=== PATIENT | male | born 1960 | race African-American/Black ===

== ENCOUNTER 2019-03-15 12:05 | Inpatient (IN) ==
[2019-03-15 13:29] LABS: Basophils % 0.3 % (0.0-0.8); Hematocrit 35.5 VOL% (42.0-52.0); Immature Granulocytes % 0.5 %; Immature Granulocytes Absolute 0.08 #; Lymphocytes # 0.4 10*3/uL (1.4-4.0); Lymphocytes % 2.5 % (21.2-54.2); Mean Corpuscular Volume 89.9 FL (87-102); Mean Platelet Volume 12.1 FL (9.6-12.0); Monocytes % 3.2 % (1.7-12.7); Neutrophils % 93.5 % (38.7-73.9); Platelet Count 168 T/CUMM (130-400); Red Blood Count 3.95 MC/CUMM (3.8-5.5); White Blood Count 14.9 T/CUMM (4-12)
[2019-03-15 13:48] LABS: Albumin 2.9 G/DL (3.4-5.0); Bilirubin,Total 1.8 MG/DL (0.2-1.0); INR 1.3; Osmolality,Calculated 290.2 MOS/KG (273-304); PT Patient Result 13.6 SECS (9.6-12.2); Partial Thromboplastin Time 33.8 SECS (20.8-36.0); Total Protein 7.4 G/DL (6.4-8.3)
[2019-03-15] MEDS ORDERED: VANCOMYCIN INJ 1,000 MG in SODIUM CHLORIDE 0.9% 250 ML IV STA (14:44)
[2019-03-15] MEDS ORDERED: SODIUM CHLORIDE 0.9% 1,000 ML IV STA (14:54)
[2019-03-15 14:59] LABS: Band Neutrophils 4 % (0-10); Lymphocytes 5 % (20-55); Metamyelocytes 3 %; Myelocytes 1 %; Platelet Estimate Normal; Segmented Neutrophils 87 % (50-85); Total Cells Counted 100
[2019-03-15 15:00] LABS: Anisocytosis Slight; Burr Cells 1+; Hypochromasia 2+; Poikilocytosis 1+
[2019-03-15 15:01] LABS: Polychromasia 1+; Schistocytes Few
[2019-03-15] MEDS ORDERED: ONDANSETRON 4 MG/2 ML VIAL IV PRN (15:37)
[2019-03-15] MEDS ORDERED: MORPHINE 4 MG/1 ML VIAL IV PRN (15:37)
[2019-03-15] MEDS ORDERED: tiZANidine 4 MG TABLET PO PRN (15:44)
[2019-03-15] MEDS ORDERED: traZODone 50 MG TABLET PO PRN (15:44)
[2019-03-15] MEDS ORDERED: IBUPROFEN 200 MG TABLET PO PRN (15:44)
[2019-03-15] MEDS ORDERED: VANCOMYCIN INJ 1,500 MG in SODIUM CHLORIDE 0.9% 500 ML IV PRN (17:30)
[2019-03-15] MEDS ORDERED: VANCOMYCIN INJ 1,000 MG in SODIUM CHLORIDE 0.9% 250 ML IV ONE (18:00)
[2019-03-15] MEDS: CIPROFLOXACIN 500 MG TABLET PO SCH (18:10)
[2019-03-15] MEDS: SODIUM CHLORIDE 0.9% 1,000 ML IV SCH (18:11)
[2019-03-15] MEDS ORDERED: DOXAZOSIN 4 MG TABLET PO SCH (21:00)
[2019-03-15] MEDS ORDERED: ENOXAPARIN 30 MG/0.3 ML SYRINGE SUBCUT SCH (21:00)
[2019-03-15] MEDS: predniSONE 20 MG TABLET PO SCH (21:18)
[2019-03-15] MEDS: HEPARIN 5,000 UNIT/1 ML VIAL SUBCUT SCH (21:18)
[2019-03-16] MEDS: HEPARIN 5,000 UNIT/1 ML VIAL SUBCUT SCH ×3 (05:48→21:53)
[2019-03-16 06:27] LABS: Basophils % 0.3 % (0.0-0.8); Eosinophils % 0.2 % (0.00-10.9); Hematocrit 32.4 VOL% (42.0-52.0); Hemoglobin 10.8 GM/DL (14.0-18.0); Immature Granulocytes % 1.6 %; Immature Granulocytes Absolute 0.22 #; Lymphocytes # 0.5 10*3/uL (1.4-4.0); Lymphocytes % 3.5 % (21.2-54.2); Mean Corpuscular HGB Conc 33.3 GM/DL (32-36); Mean Corpuscular Volume 85.7 FL (87-102); Mean Platelet Volume 13.3 FL (9.6-12.0); Monocytes % 2.6 % (1.7-12.7); Neutrophils % 91.8 % (38.7-73.9); Platelet Count 133 T/CUMM (130-400); Red Blood Count 3.78 MC/CUMM (3.8-5.5)
[2019-03-16 06:36] LABS: Band Neutrophils 5 % (0-10); Lymphocytes 6 % (20-55); Segmented Neutrophils 84 % (50-85); Total Cells Counted 100
[2019-03-16 06:37] LABS: Hypochromasia Slight; Platelet Estimate Normal
[2019-03-16 06:38] LABS: Calcium 7.9 MG/DL (8.5-10.1); Osmolality,Calculated 301.7 MOS/KG (273-304)
[2019-03-16] MEDS: SODIUM CHLORIDE 0.9% 1,000 ML IV SCH ×4 (06:51→18:16)
[2019-03-16] MEDS ORDERED: PANTOPRAZOLE 40 MG TABLET PO SCH (09:00)
[2019-03-16] MEDS ORDERED: FUROSEMIDE 20 MG TABLET PO SCH (09:00)
[2019-03-16] MEDS ORDERED: POTASSIUM CHLORIDE 20 MEQ TABLET PO SCH (09:00)
[2019-03-16] MEDS: CIPROFLOXACIN 500 MG TABLET PO SCH (11:15)
[2019-03-16] MEDS: amLODIPine 10 MG TABLET PO SCH ×2 (11:15→12:02)
[2019-03-16] MEDS: predniSONE 20 MG TABLET PO SCH ×2 (11:15→21:53)
[2019-03-16] MEDS ORDERED: MORPHINE 4 MG/1 ML VIAL IV SCH (11:30)
[2019-03-16] MEDS ORDERED: PANTOPRAZOLE 40 MG VIAL IV SCH ×2 (11:30→21:00)
[2019-03-17] MEDS: SODIUM CHLORIDE 0.9% 1,000 ML IV SCH ×4 (01:56→17:22)
[2019-03-17 04:18] LABS: Basophils # 0.1 10*3/uL (0.0-0.2); Basophils % 0.3 % (0.0-0.8); Hematocrit 31.5 VOL% (42.0-52.0); Hemoglobin 10.4 GM/DL (14.0-18.0); Immature Granulocytes % 8.1 %; Immature Granulocytes Absolute 1.42 #; Lymphocytes # 0.7 10*3/uL (1.4-4.0); Lymphocytes % 3.7 % (21.2-54.2); Mean Corpuscular Volume 84.2 FL (87-102); Mean Platelet Volume 12.9 FL (9.6-12.0); Monocytes % 3.9 % (1.7-12.7); NRBC # 0.02 10*3/uL; Platelet Count 156 T/CUMM (130-400); Red Blood Count 3.74 MC/CUMM (3.8-5.5); Red Cell Distribution Width 13.8 % (9.3-17.3); White Blood Count 17.5 T/CUMM (4-12)
[2019-03-17 04:45] LABS: Band Neutrophils 1 % (0-10); Lymphocytes 5 % (20-55); Platelet Estimate Adequate; Segmented Neutrophils 90 % (50-85); Total Cells Counted 100
[2019-03-17 04:46] LABS: Hypochromasia 1+; Ovalocytes Slight
[2019-03-17 04:49] LABS: Calcium 7.3 MG/DL (8.5-10.1)
[2019-03-17] MEDS: HEPARIN 5,000 UNIT/1 ML VIAL SUBCUT SCH ×3 (06:04→21:01)
[2019-03-17] MEDS ORDERED: VANCOMYCIN INJ 1,500 MG in SODIUM CHLORIDE 0.9% 500 ML IV ONE (09:00)
[2019-03-17] MEDS: predniSONE 20 MG TABLET PO SCH ×2 (10:01→20:54)
[2019-03-17] MEDS: CIPROFLOXACIN 500 MG TABLET PO SCH (10:01)
[2019-03-17] MEDS: PANTOPRAZOLE 40 MG TABLET PO SCH (10:01)
[2019-03-17] MEDS: CLINDAMYCIN INJ 600 MG in PREMIX 1 EACH IV SCH ×2 (12:39→20:54)
[2019-03-17] MEDS ORDERED: ceFAZolin 1,000 MG in SYRINGE 1 EACH IV ONE (15:52)
[2019-03-18] MEDS: SODIUM CHLORIDE 0.9% 1,000 ML IV SCH ×3 (01:26→16:59)
[2019-03-18] MEDS: HEPARIN 5,000 UNIT/1 ML VIAL SUBCUT SCH ×3 (06:00→21:54)
[2019-03-18] MEDS: CLINDAMYCIN INJ 600 MG in PREMIX 1 EACH IV SCH ×2 (06:03→16:59)
[2019-03-18 06:48] LABS: Basophils # 0.1 10*3/uL (0.0-0.2); Basophils % 0.4 % (0.0-0.8); Hematocrit 29.3 VOL% (42.0-52.0); Hemoglobin 10.4 GM/DL (14.0-18.0); Immature Granulocytes % 7.9 %; Immature Granulocytes Absolute 2.02 #; Lymphocytes # 0.8 10*3/uL (1.4-4.0); Lymphocytes % 2.9 % (21.2-54.2); Mean Corpuscular HGB Conc 35.5 GM/DL (32-36); Mean Corpuscular Volume 78.6 FL (87-102); Mean Platelet Volume 13.5 FL (9.6-12.0); Monocytes % 4.4 % (1.7-12.7); NRBC # 0.02 10*3/uL; Neutrophils % 84.4 % (38.7-73.9); Platelet Count 192 T/CUMM (130-400); Red Blood Count 3.73 MC/CUMM (3.8-5.5); Red Cell Distribution Width 13.3 % (9.3-17.3); White Blood Count 25.7 T/CUMM (4-12)
[2019-03-18 07:14] LABS: Calcium 7.6 MG/DL (8.5-10.1); Osmolality,Calculated 325.3 MOS/KG (273-304)
[2019-03-18 07:29] LABS: Band Neutrophils 3 % (0-10); Lymphocytes 3 % (20-55); Metamyelocytes 4 %; Myelocytes 1 %; Segmented Neutrophils 84 % (50-85); Total Cells Counted 100
[2019-03-18 07:30] LABS: Burr Cells Few; Hypochromasia 1+; Microcytosis 1+; Ovalocytes Few; Target Cells 1+
[2019-03-18 07:31] LABS: Platelet Estimate Normal
[2019-03-18 08:16] LABS: Hepatitis B Core IgM Quant < 0.05 Index; Hepatitis B Surface Ag Quant 0.11 Index; Hepatitis B Surface Ag Result Negative (Negative); Hepatitis C Virus Ab Quant 0.19 Index; Hepatitis C Virus Ab Result Negative (Negative)
[2019-03-18] MEDS ORDERED: CIPROFLOXACIN 100 MG/ML 100 ML/BOTTLE PO SCH (09:00)
[2019-03-18] MEDS ORDERED: HEPARIN 5,000 UNIT/1 ML VIAL ONE (11:03)
[2019-03-18] MEDS ORDERED: LIDOCAINE 1%/EPI INJ 20 ML VIAL ONE (11:04)
[2019-03-18] MEDS ORDERED: BUPIVACAINE MPF 0.25% 30 ML VIAL ONE (11:04)
[2019-03-18] MEDS ORDERED: PROPOFOL 200 MG/20 ML VIAL IV ONE (12:01)
[2019-03-18] MEDS ORDERED: LIDOCAINE 2% 5 ML VIAL ONE (12:01)
[2019-03-18] MEDS ORDERED: MIDAZOLAM 2 MG/2 ML VIAL ONE (12:01)
[2019-03-18] MEDS ORDERED: fentaNYL 100 MCG/2 ML VIAL ONE (12:02)
[2019-03-18] MEDS ORDERED: HEPARIN 10,000 UNIT/10 ML VIAL IV SCH (16:30)
[2019-03-18] MEDS: PANTOPRAZOLE 40 MG TABLET PO SCH (16:58)
[2019-03-18] MEDS: PIPERACILLIN/TAZOBACTAM 3,375 MG in SODIUM CHLORIDE 0.9% 100 ML IV SCH (18:16)
[2019-03-18] MEDS: ALLOPURINOL 100 MG TABLET PO SCH (20:12)
[2019-03-19] MEDS ORDERED: ALBUTEROL/IPRATROPIUM 3 ML NEB RESP TX ONE (00:15)
[2019-03-19] MEDS ORDERED: ALBUTEROL/IPRATROPIUM 3 ML NEB RESP TX PRN (00:16)
[2019-03-19] MEDS: CLINDAMYCIN INJ 600 MG in PREMIX 1 EACH IV SCH ×2 (02:22→10:09)
[2019-03-19] MEDS: HEPARIN 5,000 UNIT/1 ML VIAL SUBCUT SCH ×3 (06:11→21:18)
[2019-03-19] MEDS: PIPERACILLIN/TAZOBACTAM 3,375 MG in SODIUM CHLORIDE 0.9% 100 ML IV SCH ×2 (06:11→17:12)
[2019-03-19] MEDS: SODIUM CHLORIDE 0.9% 1,000 ML IV SCH (07:28)
[2019-03-19] MEDS: PANTOPRAZOLE 40 MG TABLET PO SCH (08:06)
[2019-03-19 12:58] LABS: Basophils # 0.2 10*3/uL (0.0-0.2); Basophils % 0.5 % (0.0-0.8); Eosinophils % 0.1 % (0.00-10.9); Hematocrit 30.4 VOL% (42.0-52.0); Hemoglobin 11.1 GM/DL (14.0-18.0); Immature Granulocytes % 8.9 %; Immature Granulocytes Absolute 3.08 #; Lymphocytes # 1.2 10*3/uL (1.4-4.0); Lymphocytes % 3.3 % (21.2-54.2); Mean Corpuscular HGB Conc 36.5 GM/DL (32-36); Mean Corpuscular Volume 76.8 FL (87-102); Mean Platelet Volume 13.1 FL (9.6-12.0); Monocytes % 3.5 % (1.7-12.7); NRBC # 0.04 10*3/uL; Neutrophils % 83.7 % (38.7-73.9); Platelet Count 172 T/CUMM (130-400); Red Blood Count 3.96 MC/CUMM (3.8-5.5); Red Cell Distribution Width 13.2 % (9.3-17.3); White Blood Count 34.5 T/CUMM (4-12)
[2019-03-19] MEDS ORDERED: VANCOMYCIN INJ 1,000 MG in SODIUM CHLORIDE 0.9% 250 ML IV PRN (13:00)
[2019-03-19 13:25] LABS: Calcium 8.4 MG/DL (8.5-10.1); Osmolality,Calculated 294.5 MOS/KG (273-304)
[2019-03-19 13:53] LABS: Anisocytosis 1+; Hypochromasia 1+; Lymphocytes 3 % (20-55); Microcytosis Slight; Poikilocytosis 1+; Segmented Neutrophils 93 % (50-85); Total Cells Counted 100
[2019-03-19 13:54] LABS: Burr Cells Few; Platelet Estimate Normal; Schistocytes Few
[2019-03-19] MEDS ORDERED: VANCOMYCIN INJ 2,000 MG in SODIUM CHLORIDE 0.9% 500 ML IV ONE (17:00)
[2019-03-19] MEDS: ALLOPURINOL 100 MG TABLET PO SCH (20:08)
[2019-03-20 04:50] LABS: Basophils # 0.1 10*3/uL (0.0-0.2); Basophils % 0.4 % (0.0-0.8); Eosinophils # 0.1 10*3/uL (0.0-0.87); Eosinophils % 0.2 % (0.00-10.9); Hematocrit 27.4 VOL% (42.0-52.0); Hemoglobin 9.9 GM/DL (14.0-18.0); Immature Granulocytes % 9.3 %; Immature Granulocytes Absolute 2.86 #; Lymphocytes # 1.6 10*3/uL (1.4-4.0); Lymphocytes % 5.2 % (21.2-54.2); Mean Corpuscular HGB Conc 36.1 GM/DL (32-36); Mean Corpuscular Volume 77.2 FL (87-102); Mean Platelet Volume 12.8 FL (9.6-12.0); Monocytes % 3.5 % (1.7-12.7); NRBC # 0.03 10*3/uL; Neutrophils % 81.4 % (38.7-73.9); Platelet Count 169 T/CUMM (130-400); Red Blood Count 3.55 MC/CUMM (3.8-5.5); White Blood Count 30.6 T/CUMM (4-12)
[2019-03-20 05:06] LABS: Calcium 8.4 MG/DL (8.5-10.1); Osmolality,Calculated 299.7 MOS/KG (273-304)
[2019-03-20] MEDS: PIPERACILLIN/TAZOBACTAM 3,375 MG in SODIUM CHLORIDE 0.9% 100 ML IV SCH ×2 (05:54→17:33)
[2019-03-20 05:55] LABS: Band Neutrophils 1 % (0-10); Hypochromasia 1+; Lymphocytes 4 % (20-55); Ovalocytes Slight; Platelet Estimate Adequate; Segmented Neutrophils 88 % (50-85); Total Cells Counted 100
[2019-03-20] MEDS: HEPARIN 5,000 UNIT/1 ML VIAL SUBCUT SCH ×3 (05:55→21:01)
[2019-03-20 05:56] LABS: Target Cells Few
[2019-03-20] MEDS: PANTOPRAZOLE 40 MG TABLET PO SCH (08:20)
[2019-03-20] MEDS: ALLOPURINOL 100 MG TABLET PO SCH (21:00)
[2019-03-21] MEDS: HEPARIN 5,000 UNIT/1 ML VIAL SUBCUT SCH ×3 (06:10→21:40)
[2019-03-21] MEDS: PIPERACILLIN/TAZOBACTAM 3,375 MG in SODIUM CHLORIDE 0.9% 100 ML IV SCH ×2 (06:10→18:08)
[2019-03-21 06:50] LABS: Basophils # 0.1 10*3/uL (0.0-0.2); Basophils % 0.3 % (0.0-0.8); Eosinophils # 0.2 10*3/uL (0.0-0.87); Eosinophils % 0.5 % (0.00-10.9); Hematocrit 25.2 VOL% (42.0-52.0); Hemoglobin 8.9 GM/DL (14.0-18.0); Immature Granulocytes % 8.5 %; Immature Granulocytes Absolute 2.51 #; Lymphocytes # 1.3 10*3/uL (1.4-4.0); Lymphocytes % 4.3 % (21.2-54.2); Mean Corpuscular HGB Conc 35.3 GM/DL (32-36); Mean Corpuscular Volume 78.5 FL (87-102); Mean Platelet Volume 12.9 FL (9.6-12.0); Monocytes % 3.9 % (1.7-12.7); NRBC # 0.02 10*3/uL; Neutrophils % 82.5 % (38.7-73.9); Platelet Count 151 T/CUMM (130-400); Red Blood Count 3.21 MC/CUMM (3.8-5.5); Red Cell Distribution Width 13.3 % (9.3-17.3); White Blood Count 29.5 T/CUMM (4-12)
[2019-03-21 07:04] LABS: Calcium 8.7 MG/DL (8.5-10.1); Osmolality,Calculated 302.5 MOS/KG (273-304)
[2019-03-21 07:11] LABS: Band Neutrophils 2 % (0-10); Eosinophils 1 % (0-10); Hypochromasia 1+; Lymphocytes 9 % (20-55); Platelet Estimate Adequate; Segmented Neutrophils 86 % (50-85); Target Cells Few; Total Cells Counted 100
[2019-03-21] MEDS: PANTOPRAZOLE 40 MG TABLET PO SCH (08:39)
[2019-03-21] MEDS ORDERED: VANCOMYCIN INJ 750 MG in SODIUM CHLORIDE 0.9% 250 ML IV ONE (17:00)
[2019-03-21] MEDS: ALLOPURINOL 100 MG TABLET PO SCH (21:40)
[2019-03-22] MEDS: ACETAMINOPHEN 325 MG TABLET PO PRN (01:47)
[2019-03-22] MEDS: PIPERACILLIN/TAZOBACTAM 3,375 MG in SODIUM CHLORIDE 0.9% 100 ML IV SCH ×2 (05:39→18:22)
[2019-03-22] MEDS: HEPARIN 5,000 UNIT/1 ML VIAL SUBCUT SCH ×3 (05:46→21:28)
[2019-03-22] MEDS: PANTOPRAZOLE 40 MG TABLET PO SCH (08:13)
[2019-03-22 08:27] LABS: Basophils # 0.1 10*3/uL (0.0-0.2); Basophils % 0.2 % (0.0-0.8); Eosinophils # 0.2 10*3/uL (0.0-0.87); Eosinophils % 0.9 % (0.00-10.9); Hematocrit 23.3 VOL% (42.0-52.0); Hemoglobin 8.1 GM/DL (14.0-18.0); Immature Granulocytes % 7.6 %; Immature Granulocytes Absolute 1.84 #; Lymphocytes # 1.2 10*3/uL (1.4-4.0); Lymphocytes % 5.1 % (21.2-54.2); Mean Corpuscular HGB Conc 34.8 GM/DL (32-36); Mean Corpuscular Volume 79.8 FL (87-102); Mean Platelet Volume 13.1 FL (9.6-12.0); Monocytes % 4.8 % (1.7-12.7); Neutrophils % 81.4 % (38.7-73.9); Platelet Count 122 T/CUMM (130-400); Red Blood Count 2.92 MC/CUMM (3.8-5.5); White Blood Count 24.1 T/CUMM (4-12)
[2019-03-22 08:41] LABS: Calcium 8.7 MG/DL (8.5-10.1); Osmolality,Calculated 291.5 MOS/KG (273-304)
[2019-03-22 09:05] LABS: Band Neutrophils 2 % (0-10); Hypochromasia 1+; Lymphocytes 4 % (20-55); Platelet Estimate Adequate; Segmented Neutrophils 86 % (50-85); Target Cells Few; Total Cells Counted 100
[2019-03-22] MEDS: SILVER SULFADIAZINE 1% CREAM 25 GM TUBE TOP SCH (15:53)
[2019-03-22] MEDS: ALLOPURINOL 100 MG TABLET PO SCH (21:28)
[2019-03-23] MEDS ORDERED: MORPHINE 4 MG/1 ML VIAL IV ONE (04:51)
[2019-03-23] MEDS: PIPERACILLIN/TAZOBACTAM 3,375 MG in SODIUM CHLORIDE 0.9% 100 ML IV SCH ×2 (05:23→19:35)
[2019-03-23] MEDS: HEPARIN 5,000 UNIT/1 ML VIAL SUBCUT SCH ×3 (05:24→21:52)
[2019-03-23 08:54] LABS: Basophils % 0.1 % (0.0-0.8); Eosinophils # 0.2 10*3/uL (0.0-0.87); Eosinophils % 1.1 % (0.00-10.9); Hematocrit 22.4 VOL% (42.0-52.0); Hemoglobin 7.8 GM/DL (14.0-18.0); Immature Granulocytes % 5.6 %; Immature Granulocytes Absolute 0.94 #; Lymphocytes # 0.9 10*3/uL (1.4-4.0); Lymphocytes % 5.4 % (21.2-54.2); Mean Corpuscular HGB Conc 34.8 GM/DL (32-36); Mean Corpuscular Volume 81.2 FL (87-102); Mean Platelet Volume 13.1 FL (9.6-12.0); Monocytes % 6.3 % (1.7-12.7); Neutrophils % 81.5 % (38.7-73.9); Platelet Count 118 T/CUMM (130-400); Red Blood Count 2.76 MC/CUMM (3.8-5.5); Red Cell Distribution Width 14.2 % (9.3-17.3); White Blood Count 16.9 T/CUMM (4-12)
[2019-03-23 09:16] LABS: Band Neutrophils 1 % (0-10); Eosinophils 4 % (0-10); Lymphocytes 7 % (20-55); Segmented Neutrophils 81 % (50-85); Total Cells Counted 100
[2019-03-23] MEDS: SILVER SULFADIAZINE 1% CREAM 25 GM TUBE TOP SCH (09:16)
[2019-03-23 09:17] LABS: Hypochromasia 2+; Microcytosis Slight; Target Cells 1+
[2019-03-23 09:18] LABS: Platelet Estimate Adequate
[2019-03-23 09:20] LABS: Calcium 8.6 MG/DL (8.5-10.1); Osmolality,Calculated 295.5 MOS/KG (273-304)
[2019-03-23] MEDS ORDERED: VANCOMYCIN INJ 1,000 MG in SODIUM CHLORIDE 0.9% 250 ML IV ONE (17:00)
[2019-03-23] MEDS: PANTOPRAZOLE 40 MG TABLET PO SCH (18:32)
[2019-03-23] MEDS: ALLOPURINOL 100 MG TABLET PO SCH (21:52)
[2019-03-23] MEDS ORDERED: SODIUM PHOSPHATE ENEMA 133 ML BOTTLE RECTAL ONE (22:37)
[2019-03-24] MEDS: POLYETHYLENE GLYCOL POWDER 17 GM PACK PO SCH ×2 (01:55→13:19)
[2019-03-24] MEDS: ACETAMINOPHEN 325 MG TABLET PO PRN (05:18)
[2019-03-24] MEDS: HEPARIN 5,000 UNIT/1 ML VIAL SUBCUT SCH ×3 (05:19→21:57)
[2019-03-24] MEDS: PIPERACILLIN/TAZOBACTAM 3,375 MG in SODIUM CHLORIDE 0.9% 100 ML IV SCH ×2 (05:19→17:53)
[2019-03-24 06:30] LABS: Basophils % 0.2 % (0.0-0.8); Eosinophils # 0.1 10*3/uL (0.0-0.87); Hematocrit 20.4 VOL% (42.0-52.0); Immature Granulocytes % 2.5 %; Immature Granulocytes Absolute 0.34 #; Lymphocytes # 0.9 10*3/uL (1.4-4.0); Lymphocytes % 6.4 % (21.2-54.2); Mean Corpuscular HGB Conc 34.3 GM/DL (32-36); Mean Corpuscular Volume 81.9 FL (87-102); Mean Platelet Volume 13.2 FL (9.6-12.0); Monocytes % 7.9 % (1.7-12.7); Platelet Count 132 T/CUMM (130-400); Red Blood Count 2.49 MC/CUMM (3.8-5.5); Red Cell Distribution Width 14.3 % (9.3-17.3); White Blood Count 13.4 T/CUMM (4-12)
[2019-03-24 06:44] LABS: Calcium 8.7 MG/DL (8.5-10.1)
[2019-03-24] MEDS ORDERED: SODIUM CHLORIDE 0.9% 1,000 ML IV PRN (07:33)
[2019-03-24] MEDS ORDERED: SEVOFLURANE 1 UNIT/15 MINUTE INH ONE (12:05)
[2019-03-24] MEDS ORDERED: MIDAZOLAM 2 MG/2 ML VIAL ONE (12:05)
[2019-03-24] MEDS ORDERED: fentaNYL 100 MCG/2 ML VIAL ONE (12:05)
[2019-03-24] MEDS ORDERED: PROPOFOL 200 MG/20 ML VIAL IV ONE (12:05)
[2019-03-24] MEDS ORDERED: PHENYLEPHRINE 1 MG/10 ML SYRINGE IV ONE (12:06)
[2019-03-24] MEDS ORDERED: ePHEDrine 50 MG/ML AMP ONE (12:06)
[2019-03-24] MEDS ORDERED: ETOMIDATE 40 MG/20 ML VIAL IV ONE (12:06)
[2019-03-24] MEDS ORDERED: ONDANSETRON 4 MG/2 ML VIAL IV PRN (12:18)
[2019-03-24] MEDS: HYDROmorphone 2 MG/1 ML VIAL IV PRN ×3 (12:23→12:42)
[2019-03-24] MEDS: PANTOPRAZOLE 40 MG TABLET PO SCH (13:19)
[2019-03-24] MEDS: SILVER SULFADIAZINE 1% CREAM 25 GM TUBE TOP SCH (14:12)
[2019-03-24 15:52] LABS: Hematocrit 25.9 VOL% (42.0-52.0); Hemoglobin 8.5 GM/DL (14.0-18.0)
[2019-03-24 16:29] LABS: Hematocrit 24.7 VOL% (42.0-52.0); Hemoglobin 8.2 GM/DL (14.0-18.0)
[2019-03-24] MEDS: ALLOPURINOL 100 MG TABLET PO SCH (21:57)
[2019-03-25] MEDS: HEPARIN 5,000 UNIT/1 ML VIAL SUBCUT SCH ×3 (05:06→21:18)
[2019-03-25] MEDS: PIPERACILLIN/TAZOBACTAM 3,375 MG in SODIUM CHLORIDE 0.9% 100 ML IV SCH ×2 (05:06→18:16)
[2019-03-25 06:13] LABS: Basophils % 0.2 % (0.0-0.8); Eosinophils # 0.1 10*3/uL (0.0-0.87); Eosinophils % 1.1 % (0.00-10.9); Hematocrit 22.9 VOL% (42.0-52.0); Hemoglobin 7.7 GM/DL (14.0-18.0); Immature Granulocytes % 1.1 %; Immature Granulocytes Absolute 0.13 #; Lymphocytes % 8.3 % (21.2-54.2); Mean Corpuscular HGB Conc 33.6 GM/DL (32-36); Mean Corpuscular Volume 83.9 FL (87-102); Mean Platelet Volume 12.9 FL (9.6-12.0); Monocytes % 8.4 % (1.7-12.7); Neutrophils % 80.9 % (38.7-73.9); Platelet Count 169 T/CUMM (130-400); Red Blood Count 2.73 MC/CUMM (3.8-5.5); Red Cell Distribution Width 14.6 % (9.3-17.3); White Blood Count 12.3 T/CUMM (4-12)
[2019-03-25 06:34] LABS: Calcium 8.7 MG/DL (8.5-10.1); Osmolality,Calculated 280.2 MOS/KG (273-304)
[2019-03-25] MEDS: POLYETHYLENE GLYCOL POWDER 17 GM PACK PO SCH (09:00)
[2019-03-25] MEDS: PANTOPRAZOLE 40 MG TABLET PO SCH (09:01)
[2019-03-25] MEDS ORDERED: SODIUM CHLORIDE 0.9% 1,000 ML IV PRN (09:05)
[2019-03-25] MEDS: SILVER SULFADIAZINE 1% CREAM 25 GM TUBE TOP SCH (11:00)
[2019-03-25] MEDS: SODIUM HYPOCHLORITE 0.25% IRRIG 473 ML BOTTLE TOP SCH (14:43)
[2019-03-25] MEDS ORDERED: VANCOMYCIN INJ 750 MG in SODIUM CHLORIDE 0.9% 250 ML IV ONE (17:00)
[2019-03-25 17:18] LABS: Hematocrit 24.9 VOL% (42.0-52.0); Hemoglobin 8.3 GM/DL (14.0-18.0)
[2019-03-25] MEDS: ALLOPURINOL 100 MG TABLET PO SCH (21:18)
[2019-03-26] MEDS: PIPERACILLIN/TAZOBACTAM 3,375 MG in SODIUM CHLORIDE 0.9% 100 ML IV SCH (05:21)
[2019-03-26] MEDS: HEPARIN 5,000 UNIT/1 ML VIAL SUBCUT SCH (05:23)
[2019-03-26 07:56] VITALS: BP 111/68
[2019-03-26] MEDS: PANTOPRAZOLE 40 MG TABLET PO SCH (10:13)
[2019-03-26] MEDS: SODIUM HYPOCHLORITE 0.25% IRRIG 473 ML BOTTLE TOP SCH (10:14)
[2019-03-26] MEDS: SILVER SULFADIAZINE 1% CREAM 25 GM TUBE TOP SCH (10:14)
[2019-03-26] MEDS: POLYETHYLENE GLYCOL POWDER 17 GM PACK PO SCH (10:14)
== END 2019-03-26 12:13 | disposition home health service (06) | DRG 854 ==
LOC: EDBD → EDUNIT# → N.EDINP 12:05 → N.ED 12:05 → SUATTDRO 16:03 → SUPCPDRO 16:03 → N.EDINP 16:52 → N.2E 17:12 → SUATTDRO 03-17 13:24
PROVIDERS: ADMIT Emergency Medicine; ATTEND Hospitalist

== ENCOUNTER 2019-03-30 10:29 | Inpatient (IN) ==
[2019-03-30 11:27] LABS: Basophils % 0.3 % (0.0-0.8); Eosinophils # 0.2 10*3/uL (0.0-0.87); Eosinophils % 1.8 % (0.00-10.9); Hematocrit 23.6 VOL% (42.0-52.0); Hemoglobin 7.6 GM/DL (14.0-18.0); Immature Granulocytes % 0.6 %; Immature Granulocytes Absolute 0.06 #; Lymphocytes % 9.1 % (21.2-54.2); Mean Corpuscular HGB Conc 32.2 GM/DL (32-36); Mean Corpuscular Volume 86.8 FL (87-102); Mean Platelet Volume 11.8 FL (9.6-12.0); Monocytes % 7.6 % (1.7-12.7); Neutrophils % 80.6 % (38.7-73.9); Platelet Count 333 T/CUMM (130-400); Red Blood Count 2.72 MC/CUMM (3.8-5.5); Red Cell Distribution Width 14.4 % (9.3-17.3); White Blood Count 10.9 T/CUMM (4-12)
[2019-03-30 11:47] LABS: Albumin 1.6 G/DL (3.4-5.0); Bilirubin,Total 1.6 MG/DL (0.2-1.0); Calcium 8.7 MG/DL (8.5-10.1); Total Protein 8.1 G/DL (6.4-8.3)
[2019-03-30] MEDS ORDERED: PROMETHAZINE 25 MG/1 ML VIAL IM PRN (12:08)
[2019-03-30] MEDS ORDERED: SODIUM CHLORIDE 0.9% 1,000 ML IV PRN (12:13)
[2019-03-30] MEDS ORDERED: methylPREDNISolone SOD SUC 125 MG/2 ML VIAL IV STA (12:28)
[2019-03-30] MEDS: methylPREDNISolone SOD SUC 40 MG/1 ML VIAL IV SCH ×2 (16:25→21:43)
[2019-03-30] MEDS: cefTRIAXone 1,000 MG in SYRINGE 1 EACH IV SCH ×2 (16:26→23:55)
[2019-03-30] MEDS ORDERED: HEPARIN 10,000 UNIT/10 ML VIAL IV SCH (17:30)
[2019-03-30] MEDS: HEPARIN 5,000 UNIT/1 ML VIAL SUBCUT SCH (21:46)
[2019-03-31] MEDS: methylPREDNISolone SOD SUC 40 MG/1 ML VIAL IV SCH ×4 (04:05→21:40)
[2019-03-31 05:48] LABS: Albumin 1.9 G/DL (3.4-5.0); Bilirubin,Total 1.1 MG/DL (0.2-1.0); Calcium 8.8 MG/DL (8.5-10.1); Osmolality,Calculated 282.4 MOS/KG (273-304); Total Protein 9.2 G/DL (6.4-8.3)
[2019-03-31 08:37] LABS: Basophils % 0.1 % (0.0-0.8); Hematocrit 28.1 VOL% (42.0-52.0); Hemoglobin 9.1 GM/DL (14.0-18.0); Immature Granulocytes % 0.3 %; Immature Granulocytes Absolute 0.03 #; Lymphocytes # 0.5 10*3/uL (1.4-4.0); Mean Corpuscular HGB Conc 32.4 GM/DL (32-36); Mean Corpuscular Volume 86.5 FL (87-102); Monocytes % 1.4 % (1.7-12.7); Neutrophils % 92.2 % (38.7-73.9); Platelet Count 315 T/CUMM (130-400); Red Blood Count 3.25 MC/CUMM (3.8-5.5); Red Cell Distribution Width 14.2 % (9.3-17.3); White Blood Count 8.9 T/CUMM (4-12)
[2019-03-31 09:19] LABS: Hypochromasia 2+; Lymphocytes 6 % (20-55); Microcytosis 1+; Segmented Neutrophils 93 % (50-85); Total Cells Counted 100
[2019-03-31 09:20] LABS: Anisocytosis 1+; Polychromasia Slight
[2019-03-31] MEDS: SODIUM HYPOCHLORITE 0.25% IRRIG 473 ML BOTTLE TOP SCH (09:45)
[2019-03-31] MEDS: HEPARIN 5,000 UNIT/1 ML VIAL SUBCUT SCH ×2 (09:45→21:40)
[2019-03-31] MEDS: PANTOPRAZOLE 40 MG TABLET PO SCH (09:46)
[2019-03-31] MEDS: SILVER SULFADIAZINE 1% CREAM 25 GM TUBE TOP SCH (09:46)
[2019-03-31] MEDS: cefTRIAXone 1,000 MG in SYRINGE 1 EACH IV SCH (12:57)
[2019-04-01] MEDS: cefTRIAXone 1,000 MG in SYRINGE 1 EACH IV SCH (00:31)
[2019-04-01] MEDS: methylPREDNISolone SOD SUC 40 MG/1 ML VIAL IV SCH ×2 (04:20→15:59)
[2019-04-01] MEDS: ACETAMINOPHEN 325 MG TABLET PO PRN ×2 (04:25→20:45)
[2019-04-01 07:54] LABS: Albumin 1.8 G/DL (3.4-5.0); Bilirubin,Total 0.7 MG/DL (0.2-1.0); Calcium 8.9 MG/DL (8.5-10.1); Osmolality,Calculated 298.1 MOS/KG (273-304); Total Protein 8.5 G/DL (6.4-8.3)
[2019-04-01] MEDS: SODIUM HYPOCHLORITE 0.25% IRRIG 473 ML BOTTLE TOP SCH (08:54)
[2019-04-01] MEDS: PANTOPRAZOLE 40 MG TABLET PO SCH (08:55)
[2019-04-01] MEDS: HEPARIN 5,000 UNIT/1 ML VIAL SUBCUT SCH ×2 (08:55→20:44)
[2019-04-01] MEDS: SILVER SULFADIAZINE 1% CREAM 25 GM TUBE TOP SCH (08:55)
[2019-04-01] MEDS: CALCITRIOL 0.25 MCG CAPSULE PO SCH (08:58)
[2019-04-01 09:04] LABS: Basophils % 0.1 % (0.0-0.8); Hematocrit 25.9 VOL% (42.0-52.0); Hemoglobin 8.3 GM/DL (14.0-18.0); Immature Granulocytes % 0.7 %; Immature Granulocytes Absolute 0.08 #; Lymphocytes # 0.6 10*3/uL (1.4-4.0); Lymphocytes % 4.9 % (21.2-54.2); Mean Corpuscular Volume 87.5 FL (87-102); Mean Platelet Volume 12.2 FL (9.6-12.0); Monocytes % 3.2 % (1.7-12.7); Neutrophils % 91.1 % (38.7-73.9); Platelet Count 299 T/CUMM (130-400); Red Blood Count 2.96 MC/CUMM (3.8-5.5); Red Cell Distribution Width 14.2 % (9.3-17.3); White Blood Count 12.1 T/CUMM (4-12)
[2019-04-01 09:13] LABS: Immuno Free Light Chain Kappa 36.87 MG/DL (0.33-1.94); Immuno Free Light Chain Lambda 21.05 MG/DL (0.57-2.63); Immuno Free Light Chain Ratio 1.75 MG/DL (0.26-1.65)
[2019-04-01 09:26] LABS: Lymphocytes 4 % (20-55); Segmented Neutrophils 94 % (50-85); Total Cells Counted 100
[2019-04-01 09:27] LABS: Anisocytosis Slight; Hypochromasia 1+; Microcytosis 1+; Platelet Estimate Normal; Target Cells Few
[2019-04-01 11:02] LABS: Total Protein (Chem) 8.3 G/DL (6.4-8.3)
[2019-04-01] MEDS: ONDANSETRON 4 MG/2 ML VIAL IV PRN ×2 (12:01→20:41)
[2019-04-01 12:33] LABS: Albumin (SPE) 2.7 G/DL (3.2-5.3); Albumin (SPE) Rel % 32.3 %; Alpha 1 (SPE) 0.5 G/DL (0.1-0.4); Alpha 1 (SPE) Rel % 6.3 %; Alpha 2 (SPE) 1.2 G/DL (0.4-1.0); Alpha 2 (SPE) Rel % 14.5 %; Beta (SPE) 1.1 G/DL (0.5-1.1); Beta (SPE) Rel % 12.9 %; Gamma (SPE) 2.8 G/DL (0.7-1.7)
[2019-04-01] MEDS ORDERED: TUBERCULIN SKIN TEST 0.1 ML SYRINGE INTRADERM ONE (13:59)
[2019-04-02] MEDS: methylPREDNISolone SOD SUC 40 MG/1 ML VIAL IV SCH ×2 (04:41→16:30)
[2019-04-02 05:40] LABS: Basophils % 0.1 % (0.0-0.8); Hemoglobin 8.2 GM/DL (14.0-18.0); Immature Granulocytes % 0.6 %; Immature Granulocytes Absolute 0.06 #; Lymphocytes # 0.9 10*3/uL (1.4-4.0); Lymphocytes % 9.3 % (21.2-54.2); Mean Corpuscular HGB Conc 31.5 GM/DL (32-36); Mean Corpuscular Volume 87.8 FL (87-102); Monocytes % 6.5 % (1.7-12.7); Neutrophils % 83.5 % (38.7-73.9); Platelet Count 291 T/CUMM (130-400); Red Blood Count 2.96 MC/CUMM (3.8-5.5); White Blood Count 10.2 T/CUMM (4-12)
[2019-04-02] MEDS: cefTRIAXone 1,000 MG in SYRINGE 1 EACH IV SCH (10:07)
[2019-04-02] MEDS: HEPARIN 5,000 UNIT/1 ML VIAL SUBCUT SCH ×2 (10:08→20:28)
[2019-04-02] MEDS: CALCITRIOL 0.25 MCG CAPSULE PO SCH (10:08)
[2019-04-02] MEDS: PANTOPRAZOLE 40 MG TABLET PO SCH (10:08)
[2019-04-02] MEDS: SILVER SULFADIAZINE 1% CREAM 25 GM TUBE TOP SCH (11:22)
[2019-04-02] MEDS: SODIUM HYPOCHLORITE 0.25% IRRIG 473 ML BOTTLE TOP SCH (11:22)
[2019-04-03] MEDS: methylPREDNISolone SOD SUC 40 MG/1 ML VIAL IV SCH ×2 (05:26→17:15)
[2019-04-03 05:35] LABS: Basophils % 0.1 % (0.0-0.8); Hematocrit 27.2 VOL% (42.0-52.0); Hemoglobin 8.8 GM/DL (14.0-18.0); Immature Granulocytes % 0.8 %; Immature Granulocytes Absolute 0.06 #; Lymphocytes # 1.1 10*3/uL (1.4-4.0); Lymphocytes % 14.9 % (21.2-54.2); Mean Corpuscular HGB Conc 32.4 GM/DL (32-36); Mean Corpuscular Volume 86.3 FL (87-102); Mean Platelet Volume 12.1 FL (9.6-12.0); Monocytes % 8.9 % (1.7-12.7); Neutrophils % 75.3 % (38.7-73.9); Platelet Count 252 T/CUMM (130-400); Red Blood Count 3.15 MC/CUMM (3.8-5.5); Red Cell Distribution Width 13.8 % (9.3-17.3); White Blood Count 7.6 T/CUMM (4-12)
[2019-04-03 05:56] LABS: Calcium 8.9 MG/DL (8.5-10.1)
[2019-04-03] MEDS: PANTOPRAZOLE 40 MG TABLET PO SCH (08:30)
[2019-04-03] MEDS: cefTRIAXone 1,000 MG in SYRINGE 1 EACH IV SCH (08:30)
[2019-04-03] MEDS: CALCITRIOL 0.25 MCG CAPSULE PO SCH (08:30)
[2019-04-03] MEDS: SODIUM HYPOCHLORITE 0.25% IRRIG 473 ML BOTTLE TOP SCH (08:32)
[2019-04-03] MEDS: SILVER SULFADIAZINE 1% CREAM 25 GM TUBE TOP SCH (08:33)
[2019-04-03] MEDS: HEPARIN 5,000 UNIT/1 ML VIAL SUBCUT SCH ×2 (10:19→20:15)
[2019-04-03] MEDS: ONDANSETRON 4 MG/2 ML VIAL IV PRN (19:21)
[2019-04-04 07:04] LABS: Basophils % 0.1 % (0.0-0.8); Eosinophils % 0.1 % (0.00-10.9); Hematocrit 30.4 VOL% (42.0-52.0); Hemoglobin 9.7 GM/DL (14.0-18.0); Immature Granulocytes % 1.1 %; Immature Granulocytes Absolute 0.09 #; Lymphocytes # 1.3 10*3/uL (1.4-4.0); Lymphocytes % 16.2 % (21.2-54.2); Mean Corpuscular HGB Conc 31.9 GM/DL (32-36); Mean Corpuscular Volume 87.6 FL (87-102); Monocytes % 10.2 % (1.7-12.7); Neutrophils % 72.3 % (38.7-73.9); Platelet Count 259 T/CUMM (130-400); Red Blood Count 3.47 MC/CUMM (3.8-5.5); Red Cell Distribution Width 13.8 % (9.3-17.3); White Blood Count 8.1 T/CUMM (4-12)
[2019-04-04 07:33] LABS: Calcium 9.1 MG/DL (8.5-10.1); Osmolality,Calculated 305.7 MOS/KG (273-304)
[2019-04-04] MEDS: methylPREDNISolone SOD SUC 40 MG/1 ML VIAL IV SCH ×2 (07:36→16:46)
[2019-04-04] MEDS: PANTOPRAZOLE 40 MG TABLET PO SCH (08:22)
[2019-04-04] MEDS: HEPARIN 5,000 UNIT/1 ML VIAL SUBCUT SCH ×2 (08:22→21:57)
[2019-04-04] MEDS: CALCITRIOL 0.25 MCG CAPSULE PO SCH (08:22)
[2019-04-04] MEDS: cefTRIAXone 1,000 MG in SYRINGE 1 EACH IV SCH (08:24)
[2019-04-04] MEDS: SODIUM HYPOCHLORITE 0.25% IRRIG 473 ML BOTTLE TOP SCH (08:24)
[2019-04-04] MEDS: SILVER SULFADIAZINE 1% CREAM 25 GM TUBE TOP SCH (08:27)
[2019-04-05] MEDS: methylPREDNISolone SOD SUC 40 MG/1 ML VIAL IV SCH ×2 (03:22→17:00)
[2019-04-05 07:08] LABS: Basophils % 0.1 % (0.0-0.8); Eosinophils % 0.5 % (0.00-10.9); Hematocrit 33.3 VOL% (42.0-52.0); Hemoglobin 10.8 GM/DL (14.0-18.0); Immature Granulocytes % 1.9 %; Immature Granulocytes Absolute 0.15 #; Lymphocytes # 0.7 10*3/uL (1.4-4.0); Lymphocytes % 8.4 % (21.2-54.2); Mean Corpuscular HGB Conc 32.4 GM/DL (32-36); Mean Corpuscular Volume 86.7 FL (87-102); Mean Platelet Volume 11.9 FL (9.6-12.0); Monocytes % 3.4 % (1.7-12.7); Neutrophils % 85.7 % (38.7-73.9); Platelet Count 229 T/CUMM (130-400); Red Blood Count 3.84 MC/CUMM (3.8-5.5); White Blood Count 7.7 T/CUMM (4-12)
[2019-04-05 07:39] LABS: Albumin 2.2 G/DL (3.4-5.0); Bilirubin,Total 0.6 MG/DL (0.2-1.0); Calcium 9.2 MG/DL (8.5-10.1); Osmolality,Calculated 293.8 MOS/KG (273-304); Total Protein 8.6 G/DL (6.4-8.3)
[2019-04-05] MEDS: cefTRIAXone 1,000 MG in SYRINGE 1 EACH IV SCH (09:34)
[2019-04-05] MEDS: PANTOPRAZOLE 40 MG TABLET PO SCH (09:37)
[2019-04-05] MEDS: CALCITRIOL 0.25 MCG CAPSULE PO SCH (09:37)
[2019-04-05] MEDS: HEPARIN 5,000 UNIT/1 ML VIAL SUBCUT SCH ×2 (09:38→20:57)
[2019-04-05] MEDS: SILVER SULFADIAZINE 1% CREAM 25 GM TUBE TOP SCH (09:38)
[2019-04-05] MEDS: SODIUM HYPOCHLORITE 0.25% IRRIG 473 ML BOTTLE TOP SCH (09:38)
[2019-04-05] MEDS ORDERED: TISSUE ADHESIVE 1 EACH APPLICATOR TOP ONE (12:43)
[2019-04-05] MEDS ORDERED: LIDOCAINE 1%/EPI INJ 20 ML VIAL ONE (12:43)
[2019-04-05] MEDS ORDERED: BUPIVACAINE MPF 0.25% 30 ML VIAL ONE (12:43)
[2019-04-05] MEDS ORDERED: ALBUMIN 5% 12.5 GM/250 ML VIAL IV ONE (13:12)
[2019-04-05] MEDS ORDERED: MIDAZOLAM 2 MG/2 ML VIAL ONE (15:12)
[2019-04-05] MEDS ORDERED: ONDANSETRON 4 MG/2 ML VIAL ONE (15:12)
[2019-04-05] MEDS ORDERED: ETOMIDATE 40 MG/20 ML VIAL IV ONE (15:12)
[2019-04-05] MEDS ORDERED: fentaNYL 250 MCG/5 ML VIAL ONE (15:12)
[2019-04-05] MEDS ORDERED: LIDOCAINE 2% 5 ML VIAL ONE (15:12)
[2019-04-05] MEDS ORDERED: methylPREDNISolone SOD SUC 125 MG/2 ML VIAL ONE (15:12)
[2019-04-05] MEDS ORDERED: NEOSTIGMINE 10 MG/10 ML VIAL ONE (15:13)
[2019-04-05] MEDS ORDERED: SEVOFLURANE 1 UNIT/15 MINUTE INH ONE (15:13)
[2019-04-05] MEDS ORDERED: ROCURONIUM 100 MG/10 ML VIAL IV ONE (15:13)
[2019-04-05] MEDS ORDERED: GLYCOPYRROLATE 0.4 MG/2 ML VIAL ONE (15:13)
[2019-04-05] MEDS ORDERED: PHENYLEPHRINE 1 MG/10 ML SYRINGE IV ONE (15:13)
[2019-04-05] MEDS ORDERED: ONDANSETRON 4 MG/2 ML VIAL IV PRN (15:37)
[2019-04-05] MEDS ORDERED: HYDROmorphone 2 MG/1 ML VIAL IV PRN (15:37)
[2019-04-05] MEDS: ACETAMINOPHEN 325 MG TABLET PO PRN (20:56)
[2019-04-06] MEDS: methylPREDNISolone SOD SUC 40 MG/1 ML VIAL IV SCH ×2 (04:38→16:16)
[2019-04-06] MEDS: HEPARIN 5,000 UNIT/1 ML VIAL SUBCUT SCH ×2 (08:13→21:07)
[2019-04-06] MEDS: SODIUM HYPOCHLORITE 0.25% IRRIG 473 ML BOTTLE TOP SCH (08:13)
[2019-04-06] MEDS: CALCITRIOL 0.25 MCG CAPSULE PO SCH (08:13)
[2019-04-06] MEDS: PANTOPRAZOLE 40 MG TABLET PO SCH (08:13)
[2019-04-06] MEDS: cefTRIAXone 1,000 MG in SYRINGE 1 EACH IV SCH (08:14)
[2019-04-06] MEDS: SILVER SULFADIAZINE 1% CREAM 25 GM TUBE TOP SCH (08:14)
[2019-04-06] MEDS: ONDANSETRON 4 MG/2 ML VIAL IV PRN (16:19)
[2019-04-06] MEDS: MORPHINE 4 MG/1 ML VIAL IV PRN (16:23)
[2019-04-07] MEDS: methylPREDNISolone SOD SUC 40 MG/1 ML VIAL IV SCH ×2 (04:45→17:00)
[2019-04-07 05:14] LABS: Basophils % 0.3 % (0.0-0.8); Eosinophils % 0.4 % (0.00-10.9); Hematocrit 36.6 VOL% (42.0-52.0); Hemoglobin 11.3 GM/DL (14.0-18.0); Immature Granulocytes % 3.6 %; Lymphocytes # 1.9 10*3/uL (1.4-4.0); Lymphocytes % 17.5 % (21.2-54.2); Mean Corpuscular HGB Conc 30.9 GM/DL (32-36); Mean Corpuscular Volume 89.1 FL (87-102); Mean Platelet Volume 11.4 FL (9.6-12.0); Monocytes % 9.2 % (1.7-12.7); Platelet Count 226 T/CUMM (130-400); Red Blood Count 4.11 MC/CUMM (3.8-5.5); Red Cell Distribution Width 14.6 % (9.3-17.3); White Blood Count 11.1 T/CUMM (4-12)
[2019-04-07 05:33] LABS: Calcium 9.7 MG/DL (8.5-10.1); Osmolality,Calculated 292.8 MOS/KG (273-304)
[2019-04-07] MEDS: CALCITRIOL 0.25 MCG CAPSULE PO SCH (09:34)
[2019-04-07] MEDS: PANTOPRAZOLE 40 MG TABLET PO SCH (09:34)
[2019-04-07] MEDS: HEPARIN 5,000 UNIT/1 ML VIAL SUBCUT SCH ×2 (09:36→23:26)
[2019-04-07] MEDS: SODIUM HYPOCHLORITE 0.25% IRRIG 473 ML BOTTLE TOP SCH (11:10)
[2019-04-07] MEDS: cefTRIAXone 1,000 MG in SYRINGE 1 EACH IV SCH (11:10)
[2019-04-07] MEDS: SILVER SULFADIAZINE 1% CREAM 25 GM TUBE TOP SCH (11:11)
[2019-04-07] MEDS: MORPHINE 4 MG/1 ML VIAL IV PRN (11:11)
[2019-04-08] MEDS: methylPREDNISolone SOD SUC 40 MG/1 ML VIAL IV SCH ×2 (04:29→15:45)
[2019-04-08 05:26] LABS: Basophils % 0.2 % (0.0-0.8); Eosinophils % 0.1 % (0.00-10.9); Hematocrit 33.3 VOL% (42.0-52.0); Hemoglobin 10.7 GM/DL (14.0-18.0); Immature Granulocytes Absolute 0.76 #; Lymphocytes # 2.1 10*3/uL (1.4-4.0); Lymphocytes % 13.4 % (21.2-54.2); Mean Corpuscular HGB Conc 32.1 GM/DL (32-36); Mean Corpuscular Volume 86.9 FL (87-102); Mean Platelet Volume 12.2 FL (9.6-12.0); Monocytes % 7.8 % (1.7-12.7); Neutrophils % 73.5 % (38.7-73.9); Platelet Count 213 T/CUMM (130-400); Red Blood Count 3.83 MC/CUMM (3.8-5.5); Red Cell Distribution Width 14.4 % (9.3-17.3); White Blood Count 15.3 T/CUMM (4-12)
[2019-04-08 05:44] LABS: Calcium 9.2 MG/DL (8.5-10.1); Osmolality,Calculated 299.2 MOS/KG (273-304)
[2019-04-08 05:51] LABS: Band Neutrophils 1 % (0-10); Eosinophils 1 % (0-10); Hypochromasia 1+; Lymphocytes 7 % (20-55); Platelet Estimate Adequate; Segmented Neutrophils 85 % (50-85); Total Cells Counted 100
[2019-04-08] MEDS: HEPARIN 5,000 UNIT/1 ML VIAL SUBCUT SCH ×2 (09:57→20:16)
[2019-04-08] MEDS: CALCITRIOL 0.25 MCG CAPSULE PO SCH (11:35)
[2019-04-08] MEDS: cefTRIAXone 1,000 MG in SYRINGE 1 EACH IV SCH (11:35)
[2019-04-08] MEDS: PANTOPRAZOLE 40 MG TABLET PO SCH (11:35)
[2019-04-08] MEDS: SILVER SULFADIAZINE 1% CREAM 25 GM TUBE TOP SCH (15:19)
[2019-04-08] MEDS: SODIUM HYPOCHLORITE 0.25% IRRIG 473 ML BOTTLE TOP SCH (15:19)
[2019-04-09] MEDS: methylPREDNISolone SOD SUC 40 MG/1 ML VIAL IV SCH (04:04)
[2019-04-09 05:23] LABS: Basophils # 0.1 10*3/uL (0.0-0.2); Basophils % 0.2 % (0.0-0.8); Hematocrit 34.5 VOL% (42.0-52.0); Hemoglobin 11.2 GM/DL (14.0-18.0); Immature Granulocytes Absolute 1.32 #; Lymphocytes # 2.6 10*3/uL (1.4-4.0); Lymphocytes % 11.7 % (21.2-54.2); Mean Corpuscular HGB Conc 32.5 GM/DL (32-36); Mean Corpuscular Volume 85.4 FL (87-102); Mean Platelet Volume 12.6 FL (9.6-12.0); Monocytes % 7.9 % (1.7-12.7); Neutrophils % 74.2 % (38.7-73.9); Platelet Count 174 T/CUMM (130-400); Red Blood Count 4.04 MC/CUMM (3.8-5.5); Red Cell Distribution Width 14.3 % (9.3-17.3); White Blood Count 21.9 T/CUMM (4-12)
[2019-04-09 05:55] LABS: Calcium 9.3 MG/DL (8.5-10.1); Osmolality,Calculated 289.5 MOS/KG (273-304)
[2019-04-09 06:24] LABS: Anisocytosis 1+; Band Neutrophils 1 % (0-10); Hypochromasia 1+; Lymphocytes 17 % (20-55); Microcytosis 1+; Myelocytes 1 %; Platelet Estimate Adequate; Segmented Neutrophils 73 % (50-85); Total Cells Counted 100
[2019-04-09] MEDS: HEPARIN 5,000 UNIT/1 ML VIAL SUBCUT SCH ×2 (09:48→20:56)
[2019-04-09] MEDS: CALCITRIOL 0.25 MCG CAPSULE PO SCH (09:49)
[2019-04-09] MEDS: PANTOPRAZOLE 40 MG TABLET PO SCH (09:53)
[2019-04-09] MEDS: SODIUM HYPOCHLORITE 0.25% IRRIG 473 ML BOTTLE TOP SCH (10:04)
[2019-04-09] MEDS: SILVER SULFADIAZINE 1% CREAM 25 GM TUBE TOP SCH (10:04)
[2019-04-09] MEDS: PIPERACILLIN/TAZOBACTAM 3,375 MG in SODIUM CHLORIDE 0.9% 100 ML IV SCH (12:36)
[2019-04-10] MEDS: PIPERACILLIN/TAZOBACTAM 3,375 MG in SODIUM CHLORIDE 0.9% 100 ML IV SCH ×2 (00:30→11:38)
[2019-04-10 05:49] LABS: Basophils # 0.1 10*3/uL (0.0-0.2); Basophils % 0.3 % (0.0-0.8); Eosinophils % 0.1 % (0.00-10.9); Hematocrit 32.8 VOL% (42.0-52.0); Immature Granulocytes % 6.3 %; Immature Granulocytes Absolute 1.42 #; Lymphocytes # 2.6 10*3/uL (1.4-4.0); Lymphocytes % 11.5 % (21.2-54.2); Mean Corpuscular HGB Conc 33.5 GM/DL (32-36); Mean Corpuscular Volume 85.2 FL (87-102); Mean Platelet Volume 12.3 FL (9.6-12.0); Monocytes % 7.7 % (1.7-12.7); Neutrophils % 74.1 % (38.7-73.9); Platelet Count 162 T/CUMM (130-400); Red Blood Count 3.85 MC/CUMM (3.8-5.5); Red Cell Distribution Width 14.1 % (9.3-17.3); White Blood Count 22.7 T/CUMM (4-12)
[2019-04-10 06:11] LABS: Anisocytosis 2+; Band Neutrophils 3 % (0-10); Lymphocytes 15 % (20-55); Platelet Estimate Normal; Segmented Neutrophils 73 % (50-85); Total Cells Counted 100
[2019-04-10 06:16] LABS: Calcium 9.3 MG/DL (8.5-10.1); Osmolality,Calculated 290.1 MOS/KG (273-304)
[2019-04-10] MEDS ORDERED: methylPREDNISolone SOD SUC 40 MG/1 ML VIAL IV SCH (09:00)
[2019-04-10] MEDS: HEPARIN 5,000 UNIT/1 ML VIAL SUBCUT SCH ×2 (09:15→20:06)
[2019-04-10] MEDS: PANTOPRAZOLE 40 MG TABLET PO SCH (09:15)
[2019-04-10] MEDS: CALCITRIOL 0.25 MCG CAPSULE PO SCH (09:15)
[2019-04-10] MEDS ORDERED: MAGNESIUM CITRATE 300 ML BOTTLE PO PRN (09:42)
[2019-04-10] MEDS: DOCUSATE SODIUM 100 MG CAPSULE PO SCH ×2 (11:37→20:06)
[2019-04-10] MEDS: POLYETHYLENE GLYCOL POWDER 17 GM PACK PO SCH (11:37)
[2019-04-10] MEDS: predniSONE 20 MG TABLET PO SCH (11:38)
[2019-04-10] MEDS: SILVER SULFADIAZINE 1% CREAM 25 GM TUBE TOP SCH (11:39)
[2019-04-10] MEDS: SODIUM HYPOCHLORITE 0.25% IRRIG 473 ML BOTTLE TOP SCH (11:39)
[2019-04-10] MEDS: ONDANSETRON 4 MG/2 ML VIAL IV PRN (11:47)
[2019-04-10] MEDS: MORPHINE 4 MG/1 ML VIAL IV PRN (16:31)
[2019-04-10] MEDS ORDERED: VANCOMYCIN INJ 2,000 MG in SODIUM CHLORIDE 0.9% 500 ML IV ONE (18:00)
[2019-04-11 06:18] LABS: Basophils # 0.1 10*3/uL (0.0-0.2); Basophils % 0.4 % (0.0-0.8); Eosinophils % 0.1 % (0.00-10.9); Hematocrit 34.6 VOL% (42.0-52.0); Hemoglobin 11.2 GM/DL (14.0-18.0); Immature Granulocytes % 6.3 %; Immature Granulocytes Absolute 1.16 #; Lymphocytes # 1.7 10*3/uL (1.4-4.0); Lymphocytes % 9.1 % (21.2-54.2); Mean Corpuscular HGB Conc 32.4 GM/DL (32-36); Mean Corpuscular Volume 86.1 FL (87-102); Mean Platelet Volume 12.7 FL (9.6-12.0); Monocytes % 6.3 % (1.7-12.7); Neutrophils % 77.8 % (38.7-73.9); Platelet Count 149 T/CUMM (130-400); Red Blood Count 4.02 MC/CUMM (3.8-5.5); Red Cell Distribution Width 14.3 % (9.3-17.3); White Blood Count 18.5 T/CUMM (4-12)
[2019-04-11 06:43] LABS: Calcium 9.1 MG/DL (8.5-10.1); Osmolality,Calculated 296.7 MOS/KG (273-304)
[2019-04-11 06:46] LABS: Band Neutrophils 2 % (0-10); Hypochromasia 1+; Lymphocytes 10 % (20-55); Microcytosis 1+; Segmented Neutrophils 78 % (50-85); Total Cells Counted 100
[2019-04-11 06:47] LABS: Platelet Estimate Adequate
[2019-04-11] MEDS: SODIUM HYPOCHLORITE 0.25% IRRIG 473 ML BOTTLE TOP SCH (10:59)
[2019-04-11] MEDS: DOCUSATE SODIUM 100 MG CAPSULE PO SCH ×2 (10:59→21:00)
[2019-04-11] MEDS: POLYETHYLENE GLYCOL POWDER 17 GM PACK PO SCH (10:59)
[2019-04-11] MEDS: CALCITRIOL 0.25 MCG CAPSULE PO SCH (11:00)
[2019-04-11] MEDS: SILVER SULFADIAZINE 1% CREAM 25 GM TUBE TOP SCH (11:00)
[2019-04-11] MEDS: PANTOPRAZOLE 40 MG TABLET PO SCH (11:00)
[2019-04-11] MEDS: MORPHINE 4 MG/1 ML VIAL IV PRN (11:00)
[2019-04-11] MEDS: predniSONE 20 MG TABLET PO SCH (11:00)
[2019-04-11] MEDS: BISACODYL 10 MG SUPP RECTAL SCH ×2 (11:55→21:00)
[2019-04-11] MEDS: HEPARIN 5,000 UNIT/1 ML VIAL SUBCUT SCH ×2 (11:55→20:50)
[2019-04-11] MEDS ORDERED: VANCOMYCIN INJ 750 MG in SODIUM CHLORIDE 0.9% 250 ML IV PRN (17:00)
[2019-04-12 05:19] LABS: Basophils # 0.1 10*3/uL (0.0-0.2); Basophils % 0.2 % (0.0-0.8); Hematocrit 35.4 VOL% (42.0-52.0); Hemoglobin 11.7 GM/DL (14.0-18.0); Immature Granulocytes % 4.6 %; Immature Granulocytes Absolute 1.12 #; Lymphocytes # 1.3 10*3/uL (1.4-4.0); Lymphocytes % 5.1 % (21.2-54.2); Mean Corpuscular HGB Conc 33.1 GM/DL (32-36); Mean Corpuscular Volume 85.1 FL (87-102); Mean Platelet Volume 12.4 FL (9.6-12.0); Monocytes % 5.3 % (1.7-12.7); Neutrophils % 84.8 % (38.7-73.9); Platelet Count 150 T/CUMM (130-400); Red Blood Count 4.16 MC/CUMM (3.8-5.5); Red Cell Distribution Width 14.3 % (9.3-17.3); White Blood Count 24.3 T/CUMM (4-12)
[2019-04-12 05:36] LABS: Calcium 9.2 MG/DL (8.5-10.1); Osmolality,Calculated 277.2 MOS/KG (273-304)
[2019-04-12 05:42] LABS: Hypochromasia 1+; Lymphocytes 3 % (20-55); Microcytosis Slight; Platelet Estimate Adequate; Segmented Neutrophils 95 % (50-85); Total Cells Counted 100
[2019-04-12] MEDS: HEPARIN 5,000 UNIT/1 ML VIAL SUBCUT SCH ×2 (10:04→21:57)
[2019-04-12] MEDS: POLYETHYLENE GLYCOL POWDER 17 GM PACK PO SCH (10:05)
[2019-04-12] MEDS: predniSONE 20 MG TABLET PO SCH (10:05)
[2019-04-12] MEDS: DOCUSATE SODIUM 100 MG CAPSULE PO SCH ×2 (10:05→21:57)
[2019-04-12] MEDS: CALCITRIOL 0.25 MCG CAPSULE PO SCH (10:05)
[2019-04-12] MEDS: PANTOPRAZOLE 40 MG TABLET PO SCH (10:05)
[2019-04-12] MEDS: BISACODYL 10 MG SUPP RECTAL SCH ×2 (10:05→21:57)
[2019-04-12] MEDS: SODIUM HYPOCHLORITE 0.25% IRRIG 473 ML BOTTLE TOP SCH (10:06)
[2019-04-12] MEDS: SILVER SULFADIAZINE 1% CREAM 25 GM TUBE TOP SCH (10:06)
[2019-04-13 04:56] LABS: Basophils # 0.1 10*3/uL (0.0-0.2); Basophils % 0.2 % (0.0-0.8); Hematocrit 34.4 VOL% (42.0-52.0); Hemoglobin 11.3 GM/DL (14.0-18.0); Immature Granulocytes % 2.7 %; Immature Granulocytes Absolute 0.64 #; Lymphocytes # 1.1 10*3/uL (1.4-4.0); Lymphocytes % 4.6 % (21.2-54.2); Mean Corpuscular HGB Conc 32.8 GM/DL (32-36); Mean Platelet Volume 12.9 FL (9.6-12.0); Monocytes % 4.8 % (1.7-12.7); Neutrophils % 87.7 % (38.7-73.9); Platelet Count 146 T/CUMM (130-400); Red Cell Distribution Width 14.6 % (9.3-17.3); White Blood Count 23.4 T/CUMM (4-12)
[2019-04-13 05:20] LABS: Osmolality,Calculated 292.7 MOS/KG (273-304)
[2019-04-13 05:50] LABS: Lymphocytes 6 % (20-55); Segmented Neutrophils 93 % (50-85); Total Cells Counted 100
[2019-04-13 05:51] LABS: Hypochromasia 1+; Microcytosis 1+; Platelet Estimate Adequate
[2019-04-13] MEDS: BISACODYL 10 MG SUPP RECTAL SCH ×2 (08:21→22:34)
[2019-04-13] MEDS: CALCITRIOL 0.25 MCG CAPSULE PO SCH (08:21)
[2019-04-13] MEDS: PANTOPRAZOLE 40 MG TABLET PO SCH (08:21)
[2019-04-13] MEDS: SODIUM HYPOCHLORITE 0.25% IRRIG 473 ML BOTTLE TOP SCH (08:21)
[2019-04-13] MEDS: predniSONE 20 MG TABLET PO SCH (08:21)
[2019-04-13] MEDS: DOCUSATE SODIUM 100 MG CAPSULE PO SCH ×2 (08:21→22:34)
[2019-04-13] MEDS: POLYETHYLENE GLYCOL POWDER 17 GM PACK PO SCH (08:22)
[2019-04-13] MEDS: SILVER SULFADIAZINE 1% CREAM 25 GM TUBE TOP SCH (08:22)
[2019-04-13] MEDS: HEPARIN 5,000 UNIT/1 ML VIAL SUBCUT SCH ×2 (08:23→22:34)
[2019-04-14] MEDS: DOCUSATE SODIUM 100 MG CAPSULE PO SCH ×2 (08:26→22:38)
[2019-04-14] MEDS: PANTOPRAZOLE 40 MG TABLET PO SCH (08:26)
[2019-04-14] MEDS: predniSONE 20 MG TABLET PO SCH (08:26)
[2019-04-14] MEDS: CALCITRIOL 0.25 MCG CAPSULE PO SCH (08:26)
[2019-04-14] MEDS: POLYETHYLENE GLYCOL POWDER 17 GM PACK PO SCH (08:27)
[2019-04-14] MEDS: BISACODYL 10 MG SUPP RECTAL SCH ×2 (08:27→22:37)
[2019-04-14] MEDS: SODIUM HYPOCHLORITE 0.25% IRRIG 473 ML BOTTLE TOP SCH (08:28)
[2019-04-14] MEDS: HEPARIN 5,000 UNIT/1 ML VIAL SUBCUT SCH ×2 (08:28→22:38)
[2019-04-14] MEDS: SILVER SULFADIAZINE 1% CREAM 25 GM TUBE TOP SCH (08:28)
[2019-04-15] MEDS: SILVER SULFADIAZINE 1% CREAM 25 GM TUBE TOP SCH (13:31)
[2019-04-15] MEDS: predniSONE 20 MG TABLET PO SCH (13:32)
[2019-04-15] MEDS: SODIUM HYPOCHLORITE 0.25% IRRIG 473 ML BOTTLE TOP SCH (13:32)
[2019-04-15] MEDS: POLYETHYLENE GLYCOL POWDER 17 GM PACK PO SCH (13:32)
[2019-04-15] MEDS: DOCUSATE SODIUM 100 MG CAPSULE PO SCH ×2 (13:32→20:32)
[2019-04-15] MEDS: CALCITRIOL 0.25 MCG CAPSULE PO SCH (13:32)
[2019-04-15] MEDS: BISACODYL 10 MG SUPP RECTAL SCH ×2 (13:33→20:32)
[2019-04-15] MEDS: PANTOPRAZOLE 40 MG TABLET PO SCH (13:33)
[2019-04-15] MEDS: HEPARIN 5,000 UNIT/1 ML VIAL SUBCUT SCH ×2 (13:33→20:31)
[2019-04-16 06:24] LABS: Basophils % 0.2 % (0.0-0.8); Eosinophils % 0.1 % (0.00-10.9); Hematocrit 33.9 VOL% (42.0-52.0); Hemoglobin 11.1 GM/DL (14.0-18.0); Immature Granulocytes Absolute 0.35 #; Lymphocytes # 1.1 10*3/uL (1.4-4.0); Lymphocytes % 6.3 % (21.2-54.2); Mean Corpuscular HGB Conc 32.7 GM/DL (32-36); Mean Corpuscular Volume 86.7 FL (87-102); Mean Platelet Volume 13.2 FL (9.6-12.0); Monocytes % 6.7 % (1.7-12.7); Neutrophils % 84.7 % (38.7-73.9); Red Blood Count 3.91 MC/CUMM (3.8-5.5); Red Cell Distribution Width 14.9 % (9.3-17.3); White Blood Count 17.6 T/CUMM (4-12)
[2019-04-16 06:25] LABS: Platelet Count 90 T/CUMM (130-400)
[2019-04-16 06:31] LABS: Calcium 8.8 MG/DL (8.5-10.1); Osmolality,Calculated 274.8 MOS/KG (273-304)
[2019-04-16 06:35] LABS: Platelet Estimate Decreased
[2019-04-16 06:36] LABS: Hypochromasia Slight; Polychromasia Few
[2019-04-16] MEDS: DOCUSATE SODIUM 100 MG CAPSULE PO SCH ×2 (09:14→20:39)
[2019-04-16] MEDS: CALCITRIOL 0.25 MCG CAPSULE PO SCH (09:14)
[2019-04-16] MEDS: HEPARIN 5,000 UNIT/1 ML VIAL SUBCUT SCH ×2 (09:14→20:39)
[2019-04-16] MEDS: predniSONE 20 MG TABLET PO SCH (09:14)
[2019-04-16] MEDS: BISACODYL 10 MG SUPP RECTAL SCH ×2 (09:14→20:35)
[2019-04-16] MEDS: SODIUM HYPOCHLORITE 0.25% IRRIG 473 ML BOTTLE TOP SCH (09:14)
[2019-04-16] MEDS: POLYETHYLENE GLYCOL POWDER 17 GM PACK PO SCH (09:14)
[2019-04-16] MEDS: PANTOPRAZOLE 40 MG TABLET PO SCH (09:14)
[2019-04-16] MEDS: SILVER SULFADIAZINE 1% CREAM 25 GM TUBE TOP SCH (09:15)
[2019-04-17 05:16] LABS: Basophils % 0.2 % (0.0-0.8); Eosinophils # 0.1 10*3/uL (0.0-0.87); Eosinophils % 0.7 % (0.00-10.9); Hematocrit 33.1 VOL% (42.0-52.0); Immature Granulocytes % 2.6 %; Immature Granulocytes Absolute 0.43 #; Lymphocytes # 1.8 10*3/uL (1.4-4.0); Lymphocytes % 10.6 % (21.2-54.2); Mean Corpuscular HGB Conc 33.2 GM/DL (32-36); Mean Corpuscular Volume 86.4 FL (87-102); Mean Platelet Volume 11.9 FL (9.6-12.0); Monocytes % 8.2 % (1.7-12.7); Neutrophils % 77.7 % (38.7-73.9); Red Blood Count 3.83 MC/CUMM (3.8-5.5); Red Cell Distribution Width 14.8 % (9.3-17.3); White Blood Count 16.6 T/CUMM (4-12)
[2019-04-17 05:17] LABS: Platelet Count 79 T/CUMM (130-400)
[2019-04-17 06:31] LABS: Platelet Estimate Decreased; Polychromasia Few
[2019-04-17] MEDS: HEPARIN 5,000 UNIT/1 ML VIAL SUBCUT SCH ×2 (09:34→20:53)
[2019-04-17] MEDS: SILVER SULFADIAZINE 1% CREAM 25 GM TUBE TOP SCH (09:35)
[2019-04-17] MEDS: CALCITRIOL 0.25 MCG CAPSULE PO SCH (09:35)
[2019-04-17] MEDS: POLYETHYLENE GLYCOL POWDER 17 GM PACK PO SCH (09:35)
[2019-04-17] MEDS: PANTOPRAZOLE 40 MG TABLET PO SCH (09:35)
[2019-04-17] MEDS: DOCUSATE SODIUM 100 MG CAPSULE PO SCH ×2 (09:35→20:53)
[2019-04-17] MEDS: SODIUM HYPOCHLORITE 0.25% IRRIG 473 ML BOTTLE TOP SCH (09:35)
[2019-04-17] MEDS: predniSONE 20 MG TABLET PO SCH (09:35)
[2019-04-17] MEDS: BISACODYL 10 MG SUPP RECTAL SCH ×2 (09:35→20:53)
[2019-04-18 06:00] LABS: Basophils % 0.1 % (0.0-0.8); Eosinophils # 0.1 10*3/uL (0.0-0.87); Hematocrit 30.7 VOL% (42.0-52.0); Hemoglobin 10.3 GM/DL (14.0-18.0); Immature Granulocytes % 1.9 %; Immature Granulocytes Absolute 0.26 #; Lymphocytes # 1.5 10*3/uL (1.4-4.0); Lymphocytes % 11.4 % (21.2-54.2); Mean Corpuscular HGB Conc 33.6 GM/DL (32-36); Mean Corpuscular Volume 85.8 FL (87-102); Mean Platelet Volume 12.2 FL (9.6-12.0); Monocytes % 7.5 % (1.7-12.7); Neutrophils % 78.1 % (38.7-73.9); Red Blood Count 3.58 MC/CUMM (3.8-5.5); Red Cell Distribution Width 14.8 % (9.3-17.3); White Blood Count 13.4 T/CUMM (4-12)
[2019-04-18 06:04] LABS: Platelet Count 88 T/CUMM (130-400)
[2019-04-18 06:14] LABS: Calcium 9.1 MG/DL (8.5-10.1); Osmolality,Calculated 286.8 MOS/KG (273-304)
[2019-04-18 06:25] LABS: Hypochromasia 1+; Platelet Estimate Decreased
[2019-04-18] MEDS: CALCITRIOL 0.25 MCG CAPSULE PO SCH (08:37)
[2019-04-18] MEDS: DOCUSATE SODIUM 100 MG CAPSULE PO SCH (08:37)
[2019-04-18] MEDS: PANTOPRAZOLE 40 MG TABLET PO SCH (08:37)
[2019-04-18] MEDS: HEPARIN 5,000 UNIT/1 ML VIAL SUBCUT SCH (08:37)
[2019-04-18] MEDS: POLYETHYLENE GLYCOL POWDER 17 GM PACK PO SCH (08:37)
[2019-04-18] MEDS: BISACODYL 10 MG SUPP RECTAL SCH (08:37)
[2019-04-18] MEDS: SILVER SULFADIAZINE 1% CREAM 25 GM TUBE TOP SCH (08:38)
[2019-04-18] MEDS: SODIUM HYPOCHLORITE 0.25% IRRIG 473 ML BOTTLE TOP SCH (08:38)
[2019-04-18] MEDS ORDERED: ASPIRIN EC 81 MG TABLET PO SCH (09:00)
[2019-04-18] MEDS ORDERED: predniSONE 10 MG TABLET PO SCH (09:00)
[2019-04-18 11:01] LABS: Hepatitis B Core IgM Quant < 0.05 Index; Hepatitis B Surface Ag Quant < 0.10 Index; Hepatitis B Surface Ag Result Negative (Negative); Hepatitis C Virus Ab Quant 0.12 Index; Hepatitis C Virus Ab Result Negative (Negative)
[2019-04-18 15:40] VITALS: BP 106/67
[2019-04-23] MEDS ORDERED: predniSONE 5 MG TABLET PO SCH (09:00)
== END 2019-04-18 17:41 | disposition swing bed (61) | DRG 579 ==
LOC: EDUNIT# → EDBD → N.EDINP 10:29 → N.ED 10:29 → N.EDINP 13:54 → N.5E 15:09 → SUATTDRO 04-01 14:42
PROVIDERS: ADMIT Hospitalist; ATTEND Emergency Medicine

== ENCOUNTER 2019-12-29 05:57 | Inpatient (IN) ==
[2019-12-23 11:07] LABS: Basophils % 0.9 % (0.0-0.8); Eosinophils # 0.1 10*3/uL (0.0-0.87); Hemoglobin 12.3 GM/DL (14.0-18.0); Immature Granulocytes % 0.2 %; Immature Granulocytes Absolute 0.01 #; Lymphocytes # 1.9 10*3/uL (1.4-4.0); Lymphocytes % 42.7 % (21.2-54.2); Mean Corpuscular HGB Conc 31.5 GM/DL (32-36); Mean Corpuscular Volume 90.3 FL (87-102); Mean Platelet Volume 11.4 FL (9.6-12.0); Monocytes % 7.9 % (1.7-12.7); Neutrophils % 46.3 % (38.7-73.9); Platelet Count 209 T/CUMM (130-400); Red Blood Count 4.32 MC/CUMM (3.8-5.5); Red Cell Distribution Width 14.1 % (9.3-17.3); White Blood Count 4.5 T/CUMM (4-12)
[2019-12-23 11:24] LABS: Calcium 9.5 MG/DL (8.5-10.1); Osmolality,Calculated 284.3 MOS/KG (273-304)
[2019-12-29] MEDS ORDERED: ceFAZolin 2,000 MG in PREMIX 1 EACH IV ONE (06:00)
[2019-12-29] MEDS ORDERED: LIDOCAINE 1%/EPI INJ 20 ML VIAL ONE (06:24)
[2019-12-29] MEDS ORDERED: BUPIVACAINE MPF 0.25% 30 ML VIAL ONE (06:24)
[2019-12-29] MEDS ORDERED: LACTATED RINGERS 1,000 ML IV SCH ×2 (06:30→11:30)
[2019-12-29] MEDS ORDERED: ROPIVACAINE 0.5% 30 ML VIAL ONE (06:45)
[2019-12-29] MEDS ORDERED: LIDOCAINE 1% 5 ML VIAL ONE (06:45)
[2019-12-29] MEDS ORDERED: DEXAMETHASONE 4 MG/1 ML VIAL ONE (06:46)
[2019-12-29 09:45] LABS: Bilirubin,Urine Negative (Negative); Blood, Urine Negative (Negative); Glucose,Urine (UA) Negative (Negative); Ketones,Urine Negative (Negative); Mucus,Urine Occasional /LPF (Occasional); Nitrite,Urine Negative (Negative); Protein,Urine 100 MG/DL; RBC,Urine 1 /HPF (0-4); Urine Appearance CLEAR (Clear); Urine Color Straw (Yellow); Urine Specific Gravity 1.013 (1.001-1.035); Urine Urobilinogen < 2.0 EU/DL (0.2-1.0); WBC,Urine <1 /HPF (0-6)
[2019-12-29] MEDS ORDERED: ONDANSETRON 4 MG/2 ML VIAL IV PRN (09:57)
[2019-12-29] MEDS ORDERED: propofoL 200 MG/20 ML VIAL IV ONE (10:02)
[2019-12-29] MEDS ORDERED: MIDAZOLAM 2 MG/2 ML VIAL ONE (10:02)
[2019-12-29] MEDS ORDERED: LIDOCAINE 2% 5 ML VIAL ONE (10:02)
[2019-12-29] MEDS ORDERED: fentaNYL 250 MCG/5 ML VIAL ONE (10:02)
[2019-12-29] MEDS ORDERED: SEVOFLURANE 1 UNIT/15 MINUTE INH ONE (10:02)
[2019-12-29] MEDS ORDERED: ACETAMINOPHEN 1,000 MG/100 ML VIAL IV ONE (10:03)
[2019-12-29] MEDS ORDERED: ETOMIDATE 40 MG/20 ML VIAL IV ONE (10:03)
[2019-12-29] MEDS ORDERED: ROCURONIUM 100 MG/10 ML VIAL IV ONE (10:03)
[2019-12-29] MEDS ORDERED: GLYCOPYRROLATE 0.4 MG/2 ML VIAL ONE (10:03)
[2019-12-29] MEDS ORDERED: LACTATED RINGERS 1,000 ML IV ONE (10:03)
[2019-12-29] MEDS ORDERED: HYDROmorphone 2 MG/1 ML VIAL ONE (10:07)
[2019-12-29] MEDS ORDERED: ONDANSETRON 4 MG/2 ML VIAL ONE (10:07)
[2019-12-29] MEDS: HYDROmorphone 2 MG/1 ML VIAL IV PRN ×4 (10:11→10:31)
[2019-12-29] MEDS ORDERED: ALBUTEROL/IPRATROPIUM 3 ML NEB RESP TX PRN (11:03)
[2019-12-29] MEDS ORDERED: HYDROmorphone 2 MG/1 ML VIAL IV PRN (11:03)
[2019-12-29] MEDS: KETOROLAC 15 MG/1 ML VIAL IV PRN (11:25)
[2019-12-29 15:07] LABS: Hematocrit 38.7 VOL% (42.0-52.0)
[2019-12-29 15:20] LABS: INR 1.1; PT Patient Result 11.6 SECS (9.8-11.9); Partial Thromboplastin Time 30.2 SECS (23.9-33.8)
[2019-12-29] MEDS: LACTATED RINGERS 1,000 ML IV SCH (16:03)
[2019-12-29] MEDS: ceFAZolin 2,000 MG in PREMIX 1 EACH IV SCH (16:56)
[2019-12-29 17:33] LABS: Hematocrit 33.5 VOL% (42.0-52.0); Hemoglobin 10.4 GM/DL (14.0-18.0)
[2019-12-30] MEDS: LACTATED RINGERS 1,000 ML IV SCH (00:15)
[2019-12-30] MEDS: ceFAZolin 2,000 MG in PREMIX 1 EACH IV SCH (00:15)
[2019-12-30 06:15] LABS: Basophils % 0.1 % (0.0-0.8); Hematocrit 31.6 VOL% (42.0-52.0); Hemoglobin 9.7 GM/DL (14.0-18.0); Immature Granulocytes % 0.5 %; Immature Granulocytes Absolute 0.06 #; Lymphocytes # 1.9 10*3/uL (1.4-4.0); Lymphocytes % 16.3 % (21.2-54.2); Mean Corpuscular HGB Conc 30.7 GM/DL (32-36); Mean Corpuscular Volume 92.4 FL (87-102); Mean Platelet Volume 11.8 FL (9.6-12.0); Monocytes % 9.9 % (1.7-12.7); Neutrophils % 73.2 % (38.7-73.9); Platelet Count 185 T/CUMM (130-400); Red Blood Count 3.42 MC/CUMM (3.8-5.5); Red Cell Distribution Width 14.5 % (9.3-17.3); White Blood Count 11.6 T/CUMM (4-12)
[2019-12-30 06:59] LABS: Calcium 8.6 MG/DL (8.5-10.1); Osmolality,Calculated 285.5 MOS/KG (273-304)
[2019-12-30] MEDS: KETOROLAC 15 MG/1 ML VIAL IV PRN (07:14)
[2019-12-30] MEDS: ONDANSETRON 4 MG/2 ML VIAL IV PRN ×3 (07:17→21:05)
[2019-12-30] MEDS: LOSARTAN 50 MG TABLET PO SCH (08:26)
[2019-12-30] MEDS: CHOLECALCIFEROL 5,000 UNIT TABLET PO SCH (08:26)
[2019-12-30] MEDS: allopurinoL 300 MG TABLET PO SCH (08:26)
[2019-12-30] MEDS: amLODIPine 10 MG TABLET PO SCH (08:27)
[2019-12-30] MEDS: PANTOPRAZOLE 40 MG TABLET PO SCH (08:27)
[2019-12-30] MEDS: HYDROmorphone 2 MG/1 ML VIAL IV PRN ×2 (10:37→21:04)
[2019-12-31] MEDS: HYDROmorphone 2 MG/1 ML VIAL IV PRN ×4 (00:25→19:48)
[2019-12-31 06:43] LABS: Basophils % 0.2 % (0.0-0.8); Eosinophils % 0.1 % (0.00-10.9); Hematocrit 31.1 VOL% (42.0-52.0); Hemoglobin 9.6 GM/DL (14.0-18.0); Immature Granulocytes % 0.3 %; Immature Granulocytes Absolute 0.03 #; Lymphocytes # 1.4 10*3/uL (1.4-4.0); Lymphocytes % 12.3 % (21.2-54.2); Mean Corpuscular HGB Conc 30.9 GM/DL (32-36); Mean Corpuscular Volume 92.3 FL (87-102); Mean Platelet Volume 12.1 FL (9.6-12.0); Monocytes % 8.6 % (1.7-12.7); Neutrophils % 78.5 % (38.7-73.9); Platelet Count 198 T/CUMM (130-400); Red Blood Count 3.37 MC/CUMM (3.8-5.5); Red Cell Distribution Width 14.7 % (9.3-17.3); White Blood Count 11.2 T/CUMM (4-12)
[2019-12-31 07:02] LABS: Calcium 8.8 MG/DL (8.5-10.1); Osmolality,Calculated 291.4 MOS/KG (273-304)
[2019-12-31] MEDS: amLODIPine 10 MG TABLET PO SCH (09:08)
[2019-12-31] MEDS: PANTOPRAZOLE 40 MG TABLET PO SCH (09:08)
[2019-12-31] MEDS: LOSARTAN 50 MG TABLET PO SCH (09:08)
[2019-12-31] MEDS: CHOLECALCIFEROL 5,000 UNIT TABLET PO SCH (09:08)
[2019-12-31] MEDS: ONDANSETRON 4 MG/2 ML VIAL IV PRN ×2 (09:08→17:51)
[2019-12-31] MEDS ORDERED: LACTATED RINGERS 1,000 ML IV ONE (09:43)
[2019-12-31] MEDS: allopurinoL 300 MG TABLET PO SCH (10:19)
[2019-12-31] MEDS: LACTATED RINGERS 1,000 ML IV SCH ×2 (12:08→17:58)
[2020-01-01] MEDS: HYDROmorphone 2 MG/1 ML VIAL IV PRN ×4 (01:04→19:54)
[2020-01-01] MEDS: LACTATED RINGERS 1,000 ML IV SCH ×4 (02:05→19:54)
[2020-01-01 06:11] LABS: Basophils % 0.2 % (0.0-0.8); Eosinophils % 0.3 % (0.00-10.9); Hematocrit 26.5 VOL% (42.0-52.0); Hemoglobin 8.4 GM/DL (14.0-18.0); Immature Granulocytes % 0.3 %; Immature Granulocytes Absolute 0.03 #; Lymphocytes # 1.1 10*3/uL (1.4-4.0); Lymphocytes % 10.1 % (21.2-54.2); Mean Corpuscular HGB Conc 31.7 GM/DL (32-36); Mean Platelet Volume 11.8 FL (9.6-12.0); Monocytes % 9.8 % (1.7-12.7); Neutrophils % 79.3 % (38.7-73.9); Platelet Count 172 T/CUMM (130-400); Red Blood Count 2.88 MC/CUMM (3.8-5.5); Red Cell Distribution Width 14.6 % (9.3-17.3); White Blood Count 11.3 T/CUMM (4-12)
[2020-01-01 06:44] LABS: Calcium 8.2 MG/DL (8.5-10.1); Osmolality,Calculated 300.3 MOS/KG (273-304)
[2020-01-01] MEDS: PANTOPRAZOLE 40 MG TABLET PO SCH (08:15)
[2020-01-01] MEDS: CHOLECALCIFEROL 5,000 UNIT TABLET PO SCH (08:15)
[2020-01-01] MEDS: amLODIPine 10 MG TABLET PO SCH (08:15)
[2020-01-01] MEDS: allopurinoL 300 MG TABLET PO SCH (08:15)
[2020-01-02] MEDS: LACTATED RINGERS 1,000 ML IV SCH ×2 (05:23→22:14)
[2020-01-02 06:09] LABS: Calcium 7.9 MG/DL (8.5-10.1); Osmolality,Calculated 309.3 MOS/KG (273-304)
[2020-01-02 06:32] LABS: Basophils % 0.2 % (0.0-0.8); Eosinophils # 0.2 10*3/uL (0.0-0.87); Eosinophils % 3.4 % (0.00-10.9); Hematocrit 19.3 VOL% (42.0-52.0); Immature Granulocytes % 0.7 %; Immature Granulocytes Absolute 0.04 #; Lymphocytes % 17.5 % (21.2-54.2); Mean Corpuscular HGB Conc 31.6 GM/DL (32-36); Mean Corpuscular Volume 92.3 FL (87-102); Mean Platelet Volume 12.2 FL (9.6-12.0); Monocytes % 15.3 % (1.7-12.7); Neutrophils % 62.9 % (38.7-73.9); Platelet Count 157 T/CUMM (130-400)
[2020-01-02 06:39] LABS: Hemoglobin 6.1 GM/DL (14.0-18.0); Red Blood Count 2.09 MC/CUMM (3.8-5.5); White Blood Count 5.7 T/CUMM (4-12)
[2020-01-02 07:12] LABS: Band Neutrophils 7 % (0-10); Eosinophils 4 % (0-10); Hypochromasia 1+; Lymphocytes 17 % (20-55); Microcytosis Slight; Platelet Estimate Adequate; Segmented Neutrophils 55 % (50-85); Total Cells Counted 100
[2020-01-02] MEDS ORDERED: SODIUM CHLORIDE 0.9% 1,000 ML IV PRN (07:55)
[2020-01-02] MEDS: HYDROmorphone 2 MG/1 ML VIAL IV PRN ×2 (08:22→16:05)
[2020-01-02] MEDS: ONDANSETRON 4 MG/2 ML VIAL IV PRN ×2 (08:23→16:05)
[2020-01-02] MEDS: CHOLECALCIFEROL 5,000 UNIT TABLET PO SCH (09:57)
[2020-01-02] MEDS: amLODIPine 10 MG TABLET PO SCH (09:57)
[2020-01-02] MEDS: allopurinoL 300 MG TABLET PO SCH (09:57)
[2020-01-02] MEDS: PANTOPRAZOLE 40 MG TABLET PO SCH (09:57)
[2020-01-02] MEDS: PANTOPRAZOLE 40 MG VIAL IV SCH (13:39)
[2020-01-03] MEDS: HYDROmorphone 2 MG/1 ML VIAL IV PRN ×3 (02:20→17:47)
[2020-01-03] MEDS: LACTATED RINGERS 1,000 ML IV SCH ×3 (05:01→19:35)
[2020-01-03 05:26] LABS: Basophils % 0.2 % (0.0-0.8); Eosinophils # 0.2 10*3/uL (0.0-0.87); Hematocrit 28.2 VOL% (42.0-52.0); Hemoglobin 9.3 GM/DL (14.0-18.0); Immature Granulocytes % 1.1 %; Immature Granulocytes Absolute 0.06 #; Lymphocytes % 17.5 % (21.2-54.2); Mean Corpuscular Volume 88.1 FL (87-102); Mean Platelet Volume 12.2 FL (9.6-12.0); Neutrophils % 61.2 % (38.7-73.9); Platelet Count 143 T/CUMM (130-400); Red Cell Distribution Width 14.6 % (9.3-17.3); White Blood Count 5.6 T/CUMM (4-12)
[2020-01-03 05:52] LABS: Calcium 8.5 MG/DL (8.5-10.1)
[2020-01-03 06:08] LABS: Band Neutrophils 3 % (0-10); Eosinophils 3 % (0-10); Hypochromasia 1+; Lymphocytes 18 % (20-55); Nucleated Red Blood Cells 1 (0-5); Platelet Estimate Adequate; Segmented Neutrophils 55 % (50-85); Total Cells Counted 100
[2020-01-03 06:09] LABS: Microcytosis Slight
[2020-01-03] MEDS: PANTOPRAZOLE 40 MG VIAL IV SCH (08:20)
[2020-01-03] MEDS: amLODIPine 10 MG TABLET PO SCH (12:35)
[2020-01-03] MEDS: CHOLECALCIFEROL 5,000 UNIT TABLET PO SCH (12:35)
[2020-01-03] MEDS: allopurinoL 300 MG TABLET PO SCH (12:36)
[2020-01-04] MEDS: LACTATED RINGERS 1,000 ML IV SCH ×2 (01:55→10:47)
[2020-01-04 06:05] LABS: Basophils % 0.3 % (0.0-0.8); Eosinophils # 0.2 10*3/uL (0.0-0.87); Eosinophils % 3.6 % (0.00-10.9); Hemoglobin 8.5 GM/DL (14.0-18.0); Immature Granulocytes % 1.6 %; Lymphocytes # 0.9 10*3/uL (1.4-4.0); Lymphocytes % 14.6 % (21.2-54.2); Mean Corpuscular HGB Conc 32.7 GM/DL (32-36); Mean Corpuscular Volume 88.7 FL (87-102); Mean Platelet Volume 11.6 FL (9.6-12.0); Monocytes % 18.8 % (1.7-12.7); Neutrophils % 61.1 % (38.7-73.9); Platelet Count 159 T/CUMM (130-400); Red Blood Count 2.93 MC/CUMM (3.8-5.5); Red Cell Distribution Width 14.5 % (9.3-17.3); White Blood Count 6.1 T/CUMM (4-12)
[2020-01-04 06:27] LABS: Calcium 8.5 MG/DL (8.5-10.1); Osmolality,Calculated 316.3 MOS/KG (273-304)
[2020-01-04] MEDS: HYDROmorphone 2 MG/1 ML VIAL IV PRN ×2 (07:06→19:44)
[2020-01-04 07:29] LABS: Anisocytosis 1+; Band Neutrophils 13 % (0-10); Eosinophils 3 % (0-10); Lymphocytes 13 % (20-55); Macrocytosis 1+; Platelet Estimate Adequate; Reactive Lymphocytes 1+; Segmented Neutrophils 54 % (50-85); Total Cells Counted 100
[2020-01-04] MEDS: CHOLECALCIFEROL 5,000 UNIT TABLET PO SCH (08:48)
[2020-01-04] MEDS: amLODIPine 10 MG TABLET PO SCH (08:48)
[2020-01-04] MEDS: allopurinoL 300 MG TABLET PO SCH (08:48)
[2020-01-04] MEDS: PANTOPRAZOLE 40 MG VIAL IV SCH (08:50)
[2020-01-04] MEDS: DEXT 5% NACL 0.45% KCL 20 MEQ 20 MEQ/1,000 ML BAG IV SCH (11:40)
[2020-01-05] MEDS: DEXT 5% NACL 0.45% KCL 20 MEQ 20 MEQ/1,000 ML BAG IV SCH ×3 (01:16→22:11)
[2020-01-05] MEDS: HYDROmorphone 2 MG/1 ML VIAL IV PRN ×3 (05:52→20:50)
[2020-01-05] MEDS ORDERED: GABAPENTIN 400 MG CAPSULE PO ONE (06:33)
[2020-01-05] MEDS ORDERED: LACTATED RINGERS 1,000 ML IV SCH (07:00)
[2020-01-05] MEDS ORDERED: PIPERACILLIN/TAZOBACTAM 3,375 MG VIAL IV ONE (07:50)
[2020-01-05] MEDS ORDERED: LIDOCAINE 2% 5 ML VIAL ONE (09:41)
[2020-01-05] MEDS ORDERED: SEVOFLURANE 1 UNIT/15 MINUTE INH ONE (09:41)
[2020-01-05] MEDS ORDERED: PHENYLEPHRINE DRIP 20 MG/250 ML PREMIX IV ONE (09:41)
[2020-01-05] MEDS ORDERED: fentaNYL 100 MCG/2 ML VIAL ONE (09:41)
[2020-01-05] MEDS ORDERED: MIDAZOLAM 2 MG/2 ML VIAL ONE (09:41)
[2020-01-05] MEDS ORDERED: propofoL 200 MG/20 ML VIAL IV ONE (09:41)
[2020-01-05] MEDS ORDERED: PHENYLEPHRINE 1 MG/10 ML SYRINGE IV ONE (09:42)
[2020-01-05] MEDS ORDERED: GLYCOPYRROLATE 0.4 MG/2 ML VIAL ONE (09:42)
[2020-01-05] MEDS ORDERED: ONDANSETRON 4 MG/2 ML VIAL ONE ×2 (09:42→09:50)
[2020-01-05] MEDS ORDERED: ePHEDrine 50 MG/ML VIAL ONE (09:42)
[2020-01-05] MEDS ORDERED: DEXAMETHASONE 4 MG/1 ML VIAL ONE (09:42)
[2020-01-05] MEDS ORDERED: ROCURONIUM 100 MG/10 ML VIAL IV ONE (09:42)
[2020-01-05] MEDS ORDERED: NEOSTIGMINE 10 MG/10 ML VIAL ONE (09:43)
[2020-01-05] MEDS ORDERED: HYDROmorphone 2 MG/1 ML VIAL IV PRN (09:48)
[2020-01-05] MEDS ORDERED: ONDANSETRON 4 MG/2 ML VIAL IV PRN (09:48)
[2020-01-05] MEDS ORDERED: HYDROmorphone 2 MG/1 ML VIAL ONE (09:50)
[2020-01-05 11:06] LABS: Basophils # 0.1 10*3/uL (0.0-0.2); Basophils % 0.4 % (0.0-0.8); Eosinophils # 0.1 10*3/uL (0.0-0.87); Eosinophils % 0.5 % (0.00-10.9); Hematocrit 28.4 VOL% (42.0-52.0); Hemoglobin 9.1 GM/DL (14.0-18.0); Immature Granulocytes % 5.2 %; Immature Granulocytes Absolute 0.69 #; Lymphocytes # 1.1 10*3/uL (1.4-4.0); Lymphocytes % 7.9 % (21.2-54.2); Mean Corpuscular Volume 89.6 FL (87-102); Mean Platelet Volume 11.7 FL (9.6-12.0); Monocytes % 8.4 % (1.7-12.7); Neutrophils % 77.6 % (38.7-73.9); Platelet Count 203 T/CUMM (130-400); Red Blood Count 3.17 MC/CUMM (3.8-5.5); Red Cell Distribution Width 14.4 % (9.3-17.3); White Blood Count 13.4 T/CUMM (4-12)
[2020-01-05 11:30] LABS: Calcium 8.4 MG/DL (8.5-10.1); Osmolality,Calculated 305.6 MOS/KG (273-304)
[2020-01-05] MEDS: CHOLECALCIFEROL 5,000 UNIT TABLET PO SCH (11:52)
[2020-01-05] MEDS: allopurinoL 300 MG TABLET PO SCH (11:52)
[2020-01-05] MEDS: amLODIPine 10 MG TABLET PO SCH (11:52)
[2020-01-05] MEDS: PANTOPRAZOLE 40 MG VIAL IV SCH (12:03)
[2020-01-05 13:18] LABS: Eosinophils 2 % (0-10); Lymphocytes 11 % (20-55); Segmented Neutrophils 77 % (50-85); Total Cells Counted 100
[2020-01-06 04:46] LABS: Basophils # 0.1 10*3/uL (0.0-0.2); Basophils % 0.4 % (0.0-0.8); Eosinophils # 0.1 10*3/uL (0.0-0.87); Eosinophils % 0.4 % (0.00-10.9); Hematocrit 27.5 VOL% (42.0-52.0); Hemoglobin 8.9 GM/DL (14.0-18.0); Immature Granulocytes % 4.5 %; Immature Granulocytes Absolute 0.63 #; Lymphocytes # 1.5 10*3/uL (1.4-4.0); Mean Corpuscular HGB Conc 32.4 GM/DL (32-36); Mean Corpuscular Volume 88.7 FL (87-102); Mean Platelet Volume 11.6 FL (9.6-12.0); Monocytes % 11.1 % (1.7-12.7); NRBC # 0.02 10*3/uL; Neutrophils % 72.6 % (38.7-73.9); Platelet Count 221 T/CUMM (130-400); Red Cell Distribution Width 14.7 % (9.3-17.3)
[2020-01-06 05:24] LABS: Band Neutrophils 5 % (0-10); Hypochromasia Slight; Lymphocytes 13 % (20-55); Microcytosis Slight; Platelet Estimate Normal; Segmented Neutrophils 76 % (50-85); Total Cells Counted 100
[2020-01-06 05:28] LABS: Calcium 8.4 MG/DL (8.5-10.1); Osmolality,Calculated 308.4 MOS/KG (273-304)
[2020-01-06] MEDS: PANTOPRAZOLE 40 MG VIAL IV SCH (08:56)
[2020-01-06] MEDS: amLODIPine 10 MG TABLET PO SCH (08:56)
[2020-01-06] MEDS: allopurinoL 300 MG TABLET PO SCH (08:57)
[2020-01-06] MEDS: CHOLECALCIFEROL 5,000 UNIT TABLET PO SCH (08:57)
[2020-01-06] MEDS ORDERED: cefOXitin 2,000 MG in SYRINGE 1 EACH IV ONE (12:44)
[2020-01-06] MEDS: HYDROmorphone 2 MG/1 ML VIAL IV PRN ×2 (14:26→20:04)
[2020-01-06] MEDS: DEXT 5% NACL 0.45% KCL 20 MEQ 20 MEQ/1,000 ML BAG IV SCH ×2 (14:31→20:05)
[2020-01-07] MEDS: HYDROmorphone 2 MG/1 ML VIAL IV PRN ×3 (03:12→17:44)
[2020-01-07] MEDS ORDERED: cefOXitin 2,000 MG in SYRINGE 1 EACH IV ONE (06:00)
[2020-01-07 06:27] LABS: Basophils # 0.1 10*3/uL (0.0-0.2); Basophils % 0.3 % (0.0-0.8); Eosinophils # 0.3 10*3/uL (0.0-0.87); Hematocrit 25.1 VOL% (42.0-52.0); Immature Granulocytes % 3.2 %; Lymphocytes # 2.1 10*3/uL (1.4-4.0); Lymphocytes % 8.3 % (21.2-54.2); Mean Corpuscular HGB Conc 31.9 GM/DL (32-36); Mean Corpuscular Volume 90.6 FL (87-102); Mean Platelet Volume 11.4 FL (9.6-12.0); Monocytes % 7.5 % (1.7-12.7); Neutrophils % 79.7 % (38.7-73.9); Platelet Count 217 T/CUMM (130-400); Red Blood Count 2.77 MC/CUMM (3.8-5.5); Red Cell Distribution Width 14.7 % (9.3-17.3); White Blood Count 25.3 T/CUMM (4-12)
[2020-01-07 06:55] LABS: Calcium 8.3 MG/DL (8.5-10.1)
[2020-01-07 06:56] LABS: Band Neutrophils 3 % (0-10); Hypochromasia 1+; Lymphocytes 11 % (20-55); Microcytosis Slight; Segmented Neutrophils 79 % (50-85); Target Cells Slight; Total Cells Counted 100
[2020-01-07 06:57] LABS: Platelet Estimate Normal
[2020-01-07] MEDS ORDERED: propofoL 200 MG/20 ML VIAL IV ONE (09:05)
[2020-01-07] MEDS ORDERED: LACTATED RINGERS 1,000 ML IV ONE (09:06)
[2020-01-07] MEDS ORDERED: fentaNYL 100 MCG/2 ML VIAL ONE (09:06)
[2020-01-07] MEDS ORDERED: PHENYLEPHRINE 1 MG/10 ML SYRINGE IV ONE (09:06)
[2020-01-07] MEDS ORDERED: MIDAZOLAM 2 MG/2 ML VIAL ONE (09:06)
[2020-01-07] MEDS: PANTOPRAZOLE 40 MG VIAL IV SCH (09:25)
[2020-01-07] MEDS: amLODIPine 10 MG TABLET PO SCH (09:26)
[2020-01-07] MEDS: CHOLECALCIFEROL 5,000 UNIT TABLET PO SCH (09:26)
[2020-01-07] MEDS: allopurinoL 300 MG TABLET PO SCH (09:27)
[2020-01-07] MEDS: DEXT 5% NACL 0.45% KCL 20 MEQ 20 MEQ/1,000 ML BAG IV SCH (09:31)
[2020-01-07] MEDS: PIPERACILLIN/TAZOBACTAM 3,375 MG in SODIUM CHLORIDE 0.9% 100 ML IV SCH ×2 (09:31→17:43)
[2020-01-07 13:01] LABS: Amorphous Crystals,Urine Occasional /HPF (Few); Bacteria,Urine Occasional /HPF (Few); Bilirubin,Urine Negative (Negative); Blood, Urine Moderate mg/dL (Negative); Glucose,Urine (UA) Negative (Negative); Ketones,Urine Negative (Negative); Nitrite,Urine Negative (Negative); Protein,Urine 30 MG/DL; RBC,Urine 2 /HPF (0-4); Squamous Epithelial Cell,Urine Occasional /HPF (0-10); Urine Appearance CLEAR (Clear); Urine Color Yellow (Yellow); Urine Specific Gravity 1.014 (1.001-1.035); WBC,Urine 29 /HPF (0-6)
[2020-01-07] MEDS: VANCOMYCIN INJ 1,750 MG in SODIUM CHLORIDE 0.9% 500 ML IV SCH (14:44)
[2020-01-08] MEDS: DEXT 5% NACL 0.45% KCL 20 MEQ 20 MEQ/1,000 ML BAG IV SCH ×2 (02:56→07:24)
[2020-01-08] MEDS: PIPERACILLIN/TAZOBACTAM 3,375 MG in SODIUM CHLORIDE 0.9% 100 ML IV SCH ×3 (02:58→18:03)
[2020-01-08 07:01] LABS: Basophils % 0.2 % (0.0-0.8); Eosinophils # 0.4 10*3/uL (0.0-0.87); Eosinophils % 2.2 % (0.00-10.9); Hemoglobin 7.5 GM/DL (14.0-18.0); Immature Granulocytes % 3.3 %; Immature Granulocytes Absolute 0.63 #; Lymphocytes # 1.6 10*3/uL (1.4-4.0); Lymphocytes % 8.2 % (21.2-54.2); Mean Corpuscular HGB Conc 31.3 GM/DL (32-36); Mean Corpuscular Volume 91.3 FL (87-102); Mean Platelet Volume 11.3 FL (9.6-12.0); Monocytes % 5.6 % (1.7-12.7); Neutrophils % 80.5 % (38.7-73.9); Platelet Count 211 T/CUMM (130-400); Red Blood Count 2.63 MC/CUMM (3.8-5.5); Red Cell Distribution Width 14.9 % (9.3-17.3); White Blood Count 19.2 T/CUMM (4-12)
[2020-01-08 07:20] LABS: Band Neutrophils 1 % (0-10); Eosinophils 1 % (0-10); Hypochromasia 1+; Lymphocytes 8 % (20-55); Microcytosis Slight; Segmented Neutrophils 84 % (50-85); Total Cells Counted 100
[2020-01-08 07:21] LABS: Platelet Estimate Normal; Polychromasia Slight; Target Cells Slight
[2020-01-08] MEDS: PANTOPRAZOLE 40 MG VIAL IV SCH (08:26)
[2020-01-08] MEDS: CHOLECALCIFEROL 5,000 UNIT TABLET PO SCH (08:27)
[2020-01-08] MEDS: amLODIPine 10 MG TABLET PO SCH (08:27)
[2020-01-08] MEDS: allopurinoL 300 MG TABLET PO SCH (08:27)
[2020-01-08] MEDS: VANCOMYCIN INJ 1,750 MG in SODIUM CHLORIDE 0.9% 500 ML IV SCH (14:21)
[2020-01-08] MEDS: HYDROmorphone 2 MG/1 ML VIAL IV PRN (20:31)
[2020-01-09] MEDS: ACETAMINOPHEN 325 MG TABLET PO PRN (01:29)
[2020-01-09] MEDS: PIPERACILLIN/TAZOBACTAM 3,375 MG in SODIUM CHLORIDE 0.9% 100 ML IV SCH ×4 (01:30→23:59)
[2020-01-09] MEDS: HYDROmorphone 2 MG/1 ML VIAL IV PRN ×3 (01:31→20:33)
[2020-01-09 05:56] LABS: Basophils % 0.2 % (0.0-0.8); Eosinophils # 0.3 10*3/uL (0.0-0.87); Eosinophils % 2.1 % (0.00-10.9); Hematocrit 21.8 VOL% (42.0-52.0); Immature Granulocytes % 2.9 %; Immature Granulocytes Absolute 0.41 #; Lymphocytes # 1.3 10*3/uL (1.4-4.0); Lymphocytes % 9.2 % (21.2-54.2); Mean Corpuscular HGB Conc 32.1 GM/DL (32-36); Mean Corpuscular Volume 89.7 FL (87-102); Mean Platelet Volume 12.3 FL (9.6-12.0); Monocytes % 5.2 % (1.7-12.7); Neutrophils % 80.4 % (38.7-73.9); Platelet Count 217 T/CUMM (130-400); Red Blood Count 2.43 MC/CUMM (3.8-5.5); Red Cell Distribution Width 15.1 % (9.3-17.3); White Blood Count 14.3 T/CUMM (4-12)
[2020-01-09 06:29] LABS: Calcium 8.1 MG/DL (8.5-10.1); Osmolality,Calculated 306.9 MOS/KG (273-304)
[2020-01-09] MEDS: PANTOPRAZOLE 40 MG VIAL IV SCH (09:31)
[2020-01-09] MEDS: amLODIPine 10 MG TABLET PO SCH (10:18)
[2020-01-09] MEDS: CHOLECALCIFEROL 5,000 UNIT TABLET PO SCH (10:20)
[2020-01-09] MEDS: allopurinoL 300 MG TABLET PO SCH (10:20)
[2020-01-09] MEDS ORDERED: SODIUM CHLORIDE 0.9% 1,000 ML IV PRN (11:08)
[2020-01-09] MEDS: POTASSIUM CHLORIDE INJ 20 MEQ, SODIUM CHLORIDE 23.4% CONC INJ 38.5 MEQ in STERILE WATER... IV SCH (18:33)
[2020-01-09] MEDS: VANCOMYCIN INJ 1,750 MG in SODIUM CHLORIDE 0.9% 500 ML IV SCH (18:33)
[2020-01-10 05:14] LABS: Basophils % 0.3 % (0.0-0.8); Eosinophils # 0.3 10*3/uL (0.0-0.87); Eosinophils % 2.8 % (0.00-10.9); Immature Granulocytes % 2.5 %; Immature Granulocytes Absolute 0.25 #; Lymphocytes # 1.2 10*3/uL (1.4-4.0); Mean Corpuscular HGB Conc 31.9 GM/DL (32-36); Mean Corpuscular Volume 87.7 FL (87-102); Mean Platelet Volume 12.3 FL (9.6-12.0); Monocytes % 6.8 % (1.7-12.7); Neutrophils % 75.6 % (38.7-73.9); Platelet Count 206 T/CUMM (130-400); Red Blood Count 3.08 MC/CUMM (3.8-5.5); Red Cell Distribution Width 15.4 % (9.3-17.3)
[2020-01-10 05:15] LABS: Hemoglobin 8.6 GM/DL (14.0-18.0)
[2020-01-10 05:31] LABS: Calcium 7.8 MG/DL (8.5-10.1); Osmolality,Calculated 295.4 MOS/KG (273-304)
[2020-01-10] MEDS: POTASSIUM CHLORIDE INJ 20 MEQ, SODIUM CHLORIDE 23.4% CONC INJ 38.5 MEQ in STERILE WATER... IV SCH ×3 (07:13→18:25)
[2020-01-10] MEDS: PIPERACILLIN/TAZOBACTAM 3,375 MG in SODIUM CHLORIDE 0.9% 100 ML IV SCH ×3 (07:26→23:11)
[2020-01-10] MEDS ORDERED: DEXMEDETOMIDINE 200 MCG/2 ML VIAL ONE (08:24)
[2020-01-10] MEDS ORDERED: SUGAMMADEX 200 MG/2 ML VIAL IV ONE (09:24)
[2020-01-10] MEDS ORDERED: SEVOFLURANE 1 UNIT/15 MINUTE INH ONE (09:45)
[2020-01-10] MEDS ORDERED: propofoL 200 MG/20 ML VIAL IV ONE (09:45)
[2020-01-10] MEDS ORDERED: LIDOCAINE 2% 5 ML VIAL ONE (09:45)
[2020-01-10] MEDS ORDERED: DEXAMETHASONE 4 MG/1 ML VIAL ONE (09:46)
[2020-01-10] MEDS ORDERED: MIDAZOLAM 2 MG/2 ML VIAL ONE (09:46)
[2020-01-10] MEDS ORDERED: fentaNYL 100 MCG/2 ML VIAL ONE (09:46)
[2020-01-10] MEDS ORDERED: ePHEDrine 50 MG/ML VIAL ONE (09:46)
[2020-01-10] MEDS ORDERED: ETOMIDATE 40 MG/20 ML VIAL IV ONE (09:47)
[2020-01-10] MEDS ORDERED: NEOSTIGMINE 10 MG/10 ML VIAL ONE (09:47)
[2020-01-10] MEDS ORDERED: ONDANSETRON 4 MG/2 ML VIAL ONE (09:47)
[2020-01-10] MEDS ORDERED: GLYCOPYRROLATE 0.4 MG/2 ML VIAL ONE (09:47)
[2020-01-10] MEDS ORDERED: ROCURONIUM 100 MG/10 ML VIAL IV ONE (09:47)
[2020-01-10] MEDS ORDERED: PHENYLEPHRINE 1 MG/10 ML SYRINGE IV ONE (09:47)
[2020-01-10] MEDS: amLODIPine 10 MG TABLET PO SCH (10:39)
[2020-01-10] MEDS: allopurinoL 300 MG TABLET PO SCH (10:44)
[2020-01-10] MEDS: CHOLECALCIFEROL 5,000 UNIT TABLET PO SCH (10:44)
[2020-01-10] MEDS: PANTOPRAZOLE 40 MG VIAL IV SCH (10:57)
[2020-01-10] MEDS: FAT EMULSION 20% 250 ML IV SCH (16:48)
[2020-01-10] MEDS ORDERED: DEXTROSE 10% 1,000 ML IV PRN (17:00)
[2020-01-10] MEDS ORDERED: TRACE ELEMENTS (5) 1 ML, MULTIVITAMIN INJ 10 ML in AMINO ACIDS/DEXT/LYTES 5-15% 1,000 ML IV SCH (17:00)
[2020-01-11] MEDS: POTASSIUM CHLORIDE INJ 20 MEQ, SODIUM CHLORIDE 23.4% CONC INJ 38.5 MEQ in STERILE WATER... IV SCH (04:53)
[2020-01-11 06:07] LABS: Calcium 8.1 MG/DL (8.5-10.1)
[2020-01-11] MEDS: PANTOPRAZOLE 40 MG VIAL IV SCH (08:57)
[2020-01-11] MEDS: PIPERACILLIN/TAZOBACTAM 3,375 MG in SODIUM CHLORIDE 0.9% 100 ML IV SCH ×3 (09:00→23:21)
[2020-01-11] MEDS: amLODIPine 10 MG TABLET PO SCH (09:03)
[2020-01-11] MEDS: allopurinoL 300 MG TABLET PO SCH (09:03)
[2020-01-11] MEDS: CHOLECALCIFEROL 5,000 UNIT TABLET PO SCH (09:03)
[2020-01-11] MEDS: FAT EMULSION 20% 250 ML IV SCH (16:17)
[2020-01-11] MEDS: TRACE ELEMENTS (5) 1 ML, MULTIVITAMIN INJ 10 ML in AMINO ACIDS/DEXT/LYTES 5-15% 2,000 ML IV SCH (16:20)
[2020-01-12 06:33] LABS: Basophils % 0.2 % (0.0-0.8); Eosinophils # 0.2 10*3/uL (0.0-0.87); Eosinophils % 2.5 % (0.00-10.9); Hematocrit 25.4 VOL% (42.0-52.0); Hemoglobin 8.3 GM/DL (14.0-18.0); Immature Granulocytes % 2.1 %; Immature Granulocytes Absolute 0.17 #; Lymphocytes # 1.7 10*3/uL (1.4-4.0); Lymphocytes % 20.7 % (21.2-54.2); Mean Corpuscular HGB Conc 32.7 GM/DL (32-36); Mean Corpuscular Volume 87.9 FL (87-102); Mean Platelet Volume 12.7 FL (9.6-12.0); Monocytes % 7.3 % (1.7-12.7); Neutrophils % 67.2 % (38.7-73.9); Platelet Count 193 T/CUMM (130-400); Red Blood Count 2.89 MC/CUMM (3.8-5.5); Red Cell Distribution Width 15.2 % (9.3-17.3); White Blood Count 8.3 T/CUMM (4-12)
[2020-01-12 06:57] LABS: Calcium 7.8 MG/DL (8.5-10.1); Osmolality,Calculated 297.4 MOS/KG (273-304)
[2020-01-12] MEDS: PANTOPRAZOLE 40 MG VIAL IV SCH (08:16)
[2020-01-12] MEDS: PIPERACILLIN/TAZOBACTAM 3,375 MG in SODIUM CHLORIDE 0.9% 100 ML IV SCH ×2 (08:17→16:24)
[2020-01-12] MEDS: amLODIPine 10 MG TABLET PO SCH (09:14)
[2020-01-12] MEDS: allopurinoL 300 MG TABLET PO SCH (09:14)
[2020-01-12] MEDS: CHOLECALCIFEROL 5,000 UNIT TABLET PO SCH (09:14)
[2020-01-12] MEDS ORDERED: propofoL 200 MG/20 ML VIAL IV ONE (12:53)
[2020-01-12] MEDS ORDERED: LIDOCAINE 2% 5 ML VIAL ONE (12:54)
[2020-01-12] MEDS: METOCLOPRAMIDE 10 MG/2 ML VIAL IV SCH ×2 (13:38→17:31)
[2020-01-12] MEDS: FAT EMULSION 20% 250 ML IV SCH (16:23)
[2020-01-12] MEDS: TRACE ELEMENTS (5) 1 ML, MULTIVITAMIN INJ 10 ML in AMINO ACIDS/DEXT/LYTES 5-15% 2,000 ML IV SCH (16:24)
[2020-01-12] MEDS: HYDROmorphone 2 MG/1 ML VIAL IV PRN (21:48)
[2020-01-13] MEDS: METOCLOPRAMIDE 10 MG/2 ML VIAL IV SCH ×4 (00:02→18:10)
[2020-01-13] MEDS: PIPERACILLIN/TAZOBACTAM 3,375 MG in SODIUM CHLORIDE 0.9% 100 ML IV SCH ×3 (00:05→16:47)
[2020-01-13] MEDS: allopurinoL 300 MG TABLET PO SCH (08:10)
[2020-01-13] MEDS: CHOLECALCIFEROL 5,000 UNIT TABLET PO SCH (08:11)
[2020-01-13] MEDS: amLODIPine 10 MG TABLET PO SCH (08:11)
[2020-01-13 08:12] LABS: Basophils % 0.3 % (0.0-0.8); Eosinophils # 0.2 10*3/uL (0.0-0.87); Eosinophils % 2.1 % (0.00-10.9); Hematocrit 27.3 VOL% (42.0-52.0); Hemoglobin 8.7 GM/DL (14.0-18.0); Lymphocytes # 1.6 10*3/uL (1.4-4.0); Lymphocytes % 15.2 % (21.2-54.2); Mean Corpuscular HGB Conc 31.9 GM/DL (32-36); Mean Corpuscular Volume 88.9 FL (87-102); Mean Platelet Volume 12.7 FL (9.6-12.0); Monocytes % 6.8 % (1.7-12.7); Neutrophils % 74.6 % (38.7-73.9); Platelet Count 201 T/CUMM (130-400); Red Blood Count 3.07 MC/CUMM (3.8-5.5); Red Cell Distribution Width 15.3 % (9.3-17.3); White Blood Count 10.4 T/CUMM (4-12)
[2020-01-13 08:30] LABS: Calcium 8.1 MG/DL (8.5-10.1); Osmolality,Calculated 292.7 MOS/KG (273-304)
[2020-01-13] MEDS: PANTOPRAZOLE 40 MG VIAL IV SCH (08:47)
[2020-01-13] MEDS: FAT EMULSION 20% 250 ML IV SCH (14:47)
[2020-01-13] MEDS: TRACE ELEMENTS (5) 1 ML, MULTIVITAMIN INJ 10 ML in AMINO ACIDS/DEXT/LYTES 5-15% 2,000 ML IV SCH (16:47)
[2020-01-13] MEDS: HYDROmorphone 2 MG/1 ML VIAL IV PRN (21:08)
[2020-01-14] MEDS: PIPERACILLIN/TAZOBACTAM 3,375 MG in SODIUM CHLORIDE 0.9% 100 ML IV SCH ×3 (00:20→15:51)
[2020-01-14] MEDS: METOCLOPRAMIDE 10 MG/2 ML VIAL IV SCH ×4 (00:20→17:54)
[2020-01-14 06:57] LABS: Calcium 8.1 MG/DL (8.5-10.1); Osmolality,Calculated 290.8 MOS/KG (273-304)
[2020-01-14] MEDS: PANTOPRAZOLE 40 MG VIAL IV SCH (08:23)
[2020-01-14] MEDS: CHOLECALCIFEROL 5,000 UNIT TABLET PO SCH (08:30)
[2020-01-14] MEDS: amLODIPine 10 MG TABLET PO SCH (08:30)
[2020-01-14] MEDS: allopurinoL 300 MG TABLET PO SCH (08:30)
[2020-01-14] MEDS: FAT EMULSION 20% 250 ML IV SCH (15:50)
[2020-01-14] MEDS: TRACE ELEMENTS (5) 1 ML, MULTIVITAMIN INJ 10 ML in AMINO ACIDS/DEXT/LYTES 5-15% 2,000 ML IV SCH (18:09)
[2020-01-15] MEDS: HYDROmorphone 2 MG/1 ML VIAL IV PRN ×3 (00:24→21:37)
[2020-01-15] MEDS: METOCLOPRAMIDE 10 MG/2 ML VIAL IV SCH ×4 (00:24→20:44)
[2020-01-15] MEDS: PIPERACILLIN/TAZOBACTAM 3,375 MG in SODIUM CHLORIDE 0.9% 100 ML IV SCH ×3 (00:25→16:11)
[2020-01-15 03:37] LABS: Calcium 8.1 MG/DL (8.5-10.1)
[2020-01-15] MEDS: PANTOPRAZOLE 40 MG VIAL IV SCH (08:54)
[2020-01-15] MEDS: CHOLECALCIFEROL 5,000 UNIT TABLET PO SCH (08:58)
[2020-01-15] MEDS: allopurinoL 300 MG TABLET PO SCH (08:58)
[2020-01-15] MEDS: amLODIPine 10 MG TABLET PO SCH (09:08)
[2020-01-15] MEDS: TRACE ELEMENTS (5) 1 ML, MULTIVITAMIN INJ 10 ML in AMINO ACIDS/DEXT/LYTES 5-15% 2,000 ML IV SCH (16:00)
[2020-01-15] MEDS: FAT EMULSION 20% 250 ML IV SCH (16:10)
[2020-01-15] MEDS: ONDANSETRON 4 MG/2 ML VIAL IV PRN (21:37)
[2020-01-16] MEDS: PIPERACILLIN/TAZOBACTAM 3,375 MG in SODIUM CHLORIDE 0.9% 100 ML IV SCH ×2 (00:18→08:29)
[2020-01-16] MEDS: METOCLOPRAMIDE 10 MG/2 ML VIAL IV SCH ×4 (00:21→17:08)
[2020-01-16] MEDS: HYDROmorphone 2 MG/1 ML VIAL IV PRN ×3 (05:48→21:11)
[2020-01-16 06:12] LABS: Calcium 8.5 MG/DL (8.5-10.1); Osmolality,Calculated 285.1 MOS/KG (273-304)
[2020-01-16 06:22] LABS: Basophils % 0.5 % (0.0-0.8); Eosinophils # 0.3 10*3/uL (0.0-0.87); Hematocrit 24.4 VOL% (42.0-52.0); Hemoglobin 7.6 GM/DL (14.0-18.0); Immature Granulocytes % 0.8 %; Immature Granulocytes Absolute 0.06 #; Lymphocytes # 1.6 10*3/uL (1.4-4.0); Lymphocytes % 20.7 % (21.2-54.2); Mean Corpuscular HGB Conc 31.1 GM/DL (32-36); Mean Corpuscular Volume 90.4 FL (87-102); Monocytes % 9.2 % (1.7-12.7); Neutrophils % 64.8 % (38.7-73.9); Platelet Count 216 T/CUMM (130-400); Red Cell Distribution Width 15.2 % (9.3-17.3); White Blood Count 7.5 T/CUMM (4-12)
[2020-01-16 06:47] LABS: Hypochromasia 2+; Microcytosis Slight; Platelet Estimate Adequate
[2020-01-16] MEDS: CHOLECALCIFEROL 5,000 UNIT TABLET PO SCH (09:54)
[2020-01-16] MEDS: amLODIPine 10 MG TABLET PO SCH (09:54)
[2020-01-16] MEDS: allopurinoL 300 MG TABLET PO SCH (09:55)
[2020-01-16] MEDS: PANTOPRAZOLE 40 MG VIAL IV SCH (10:32)
[2020-01-16] MEDS: FAT EMULSION 20% 250 ML IV SCH (13:46)
[2020-01-16] MEDS: tiZANidine 4 MG TABLET PO PRN (16:05)
[2020-01-16] MEDS: TRACE ELEMENTS (5) 1 ML, MULTIVITAMIN INJ 10 ML in AMINO ACIDS/DEXT/LYTES 5-15% 2,000 ML IV SCH (17:07)
[2020-01-17] MEDS: METOCLOPRAMIDE 10 MG/2 ML VIAL IV SCH ×4 (00:58→17:10)
[2020-01-17] MEDS: HYDROmorphone 2 MG/1 ML VIAL IV PRN ×4 (02:18→22:03)
[2020-01-17] MEDS: ONDANSETRON 4 MG/2 ML VIAL IV PRN (06:16)
[2020-01-17] MEDS: PANTOPRAZOLE 40 MG VIAL IV SCH (09:37)
[2020-01-17] MEDS: CHOLECALCIFEROL 5,000 UNIT TABLET PO SCH (09:37)
[2020-01-17] MEDS: amLODIPine 10 MG TABLET PO SCH (09:37)
[2020-01-17] MEDS: allopurinoL 300 MG TABLET PO SCH (09:38)
[2020-01-17] MEDS: FAT EMULSION 20% 250 ML IV SCH (14:30)
[2020-01-17] MEDS: TRACE ELEMENTS (5) 1 ML, MULTIVITAMIN INJ 10 ML in AMINO ACIDS/DEXT/LYTES 5-15% 2,000 ML IV SCH (17:10)
[2020-01-18] MEDS: METOCLOPRAMIDE 10 MG/2 ML VIAL IV SCH ×4 (00:30→18:19)
[2020-01-18] MEDS: EPOETIN ALFA-EPBX 10,000 UNIT/ML VIAL SUBCUT SCH (08:53)
[2020-01-18] MEDS: allopurinoL 300 MG TABLET PO SCH (08:53)
[2020-01-18] MEDS: PANTOPRAZOLE 40 MG VIAL IV SCH (08:53)
[2020-01-18] MEDS: CHOLECALCIFEROL 5,000 UNIT TABLET PO SCH (08:53)
[2020-01-18] MEDS: amLODIPine 10 MG TABLET PO SCH (08:53)
[2020-01-19] MEDS: METOCLOPRAMIDE 10 MG/2 ML VIAL IV SCH ×4 (00:02→17:58)
[2020-01-19] MEDS: HYDROmorphone 2 MG/1 ML VIAL IV PRN ×3 (00:05→22:11)
[2020-01-19 04:19] LABS: Basophils # 0.1 10*3/uL (0.0-0.2); Basophils % 0.7 % (0.0-0.8); Eosinophils # 0.3 10*3/uL (0.0-0.87); Eosinophils % 4.5 % (0.00-10.9); Hematocrit 25.4 VOL% (42.0-52.0); Immature Granulocytes % 0.5 %; Immature Granulocytes Absolute 0.04 #; Lymphocytes # 1.8 10*3/uL (1.4-4.0); Lymphocytes % 23.8 % (21.2-54.2); Mean Corpuscular HGB Conc 31.5 GM/DL (32-36); Mean Corpuscular Volume 89.1 FL (87-102); Mean Platelet Volume 12.8 FL (9.6-12.0); Monocytes % 8.6 % (1.7-12.7); Neutrophils % 61.9 % (38.7-73.9); Platelet Count 240 T/CUMM (130-400); Red Blood Count 2.85 MC/CUMM (3.8-5.5); Red Cell Distribution Width 14.8 % (9.3-17.3); White Blood Count 7.6 T/CUMM (4-12)
[2020-01-19 04:47] LABS: Calcium 8.7 MG/DL (8.5-10.1); Osmolality,Calculated 276.5 MOS/KG (273-304)
[2020-01-19] MEDS: allopurinoL 300 MG TABLET PO SCH (09:14)
[2020-01-19] MEDS: CHOLECALCIFEROL 5,000 UNIT TABLET PO SCH (09:14)
[2020-01-19] MEDS: tiZANidine 4 MG TABLET PO PRN (09:14)
[2020-01-19] MEDS: amLODIPine 10 MG TABLET PO SCH (09:14)
[2020-01-19] MEDS: PANTOPRAZOLE 40 MG VIAL IV SCH (09:16)
[2020-01-19] MEDS ORDERED: MAGNESIUM SULF RIDER 4 GM in PREMIX 1 EACH IV PRN (13:44)
[2020-01-19] MEDS ORDERED: MAGNESIUM SULF RIDER 2 GM in PREMIX 1 EACH IV PRN (13:44)
[2020-01-20] MEDS: METOCLOPRAMIDE 10 MG/2 ML VIAL IV SCH ×2 (00:02→06:34)
[2020-01-20] MEDS: ACETAMINOPHEN 325 MG TABLET PO PRN (07:17)
[2020-01-20 08:26] VITALS: BP 136/8
[2020-01-20] MEDS: CHOLECALCIFEROL 5,000 UNIT TABLET PO SCH (08:41)
[2020-01-20] MEDS: allopurinoL 300 MG TABLET PO SCH (08:41)
[2020-01-20] MEDS: amLODIPine 10 MG TABLET PO SCH (08:41)
[2020-01-20] MEDS ORDERED: PANTOPRAZOLE 40 MG TABLET PO SCH (09:00)
[2020-01-20] MEDS: EPOETIN ALFA-EPBX 10,000 UNIT/ML VIAL SUBCUT SCH (10:18)
[2020-01-20] MEDS ORDERED: METOCLOPRAMIDE 5 MG TABLET PO SCH (15:00)
== END 2020-01-20 12:35 | disposition swing bed (61) | DRG 908 ==
LOC: N.OR 05:57 → N.SDSINP 05:59 → N.4E 08:56
PROVIDERS: ADMIT Surgery; ATTEND Surgery